=== PATIENT | female | born 1945 | race Caucasian/White ===

== ENCOUNTER 2018-02-02 11:15 | Outpatient (CLI) | payer MEDICARE | END 2018-02-02 11:16 | disposition home or self-care (01) | LOC: BICMAMMO 11:15 | PROVIDERS: ATTEND Family Medicine | DX: Z12.31 Encounter for screening mammogram for malignant neoplasm of breast (principal); R92.1 Mammographic calcification found on diagnostic imaging of breast | CPT/HCPCS: 77063; 77067 ==

== ENCOUNTER 2018-03-14 09:54 | Outpatient (CLI) | payer MEDICARE | END 2018-03-14 09:55 | disposition home or self-care (01) | LOC: BICMAMMO 09:54 | PROVIDERS: ATTEND Family Medicine | DX: R92.1 Mammographic calcification found on diagnostic imaging of breast (principal) | CPT/HCPCS: 77066; G0279 ==

== ENCOUNTER 2019-08-02 09:21 | Outpatient (CLI) | payer MEDICARE ==
--- NOTE | 2019-08-02 10:19 | RAD ---
Exam: 2 views thoracic spine HISTORY: Osteoporosis. History of T12 compression fracture. COMPARISON: 12/28/2013 FINDINGS: 12 thoracic type vertebra. Indeterminate compression fractures in the distal thoracic spine at approx imately T11 and T12 levels. There are also compression fractures in the midthoracic spine at approximately the T4 and T5 levels. If there is pain or point tenderness, consider MRI. IMPRESSION: Indeterminate compression fractures involving the mid and distal thoracic spine. If there is pain or point tenderness, consider MRI. CODE T
--- NOTE | 2019-08-02 10:45 | BD ---
DEXA SCAN BONE MINERAL DENSITY: HISTORY: Osteoporosis screening. COMPARISON: Bone mineral density study from 08/20/2014. FINDINGS: LUMBAR SPINE BMD (g/cm2) T-SCORE Z-SCORE L1 0.707 -2.6 -0.5 L2 0.678 -3.2 -0.9 L3 0.740 -3.1 -0.7 L4 0.680 -3.5 -1.0 TOTAL 0.701 -3.1 -0.8 LEFT FEMORAL NECK 0.346 -4.5 -2.5 TOTAL LEFT HIP 0.346 -4.9 -3.9 WHO CLASSIFICATION: Osteoporosis. TEN YEAR FRACTURE RISK: Major osteoporosis fracture 46% and hip fracture 29%. IMPRESSION: Osteoporosis with statistically significant decreased bone mineral density from the comparison 2013 e xamination. POS: OFF
== END 2019-08-02 09:22 | disposition home or self-care (01) ==
LOC: BICMAMMO 09:21
PROVIDERS: ATTEND Internal Medicine Rheumatology
DX: M81.0 Age-related osteoporosis without current pathological fracture (principal); S22.001A Stable burst fracture of unspecified thoracic vertebra, initial encounter for closed fracture
CPT/HCPCS: 72070; 77080

== ENCOUNTER 2019-09-04 22:04 | Inpatient (IN) | payer MEDICARE ==
[2019-09-04 22:51] LABS: #Eosinphils 0.1 thou/uL (0.0-0.7); #Lymphocytes 1.1 thou/uL (1.20-3.40); #Monocytes 1.4 thou/uL (0.11-0.59); #Neutrophils 10.4 thou/uL (1.40-6.50); %Basophils 0.1 % (0.0-1.0); %Eosinophils 0.6 % (0.0-10.0); %Lymphocytes 8.3 % (21.0-51.0); %Monocytes 10.9 % (0.0-10.0); %Neutrophils 80.2 % (42.0-75.0); Hemoglobin 11.1 g/dL (12.0-16.0); Mean Corpuscular HGB CONC 33.1 g/dL (32.0-36.0); Mean Corpuscular Volume 93.7 fL (78.0-98.0); Mean Platelet Volume 8.5 fL (7.4-10.4); Platelet Count 249 thou/uL (130-400); RBC Distribution Width 12.3 % (11.5-14.5); Red Blood Cell (RBC) Count 3.58 mill/uL (4.20-5.40); White Blood Cell (WBC) Count 12.9 thou/uL (4.8-10.8)
[2019-09-04 22:58] LABS: INR-International Normal Ratio 1.1; Prothrombin Time 13.9 SEC (12.0-14.7)
--- NOTE | 2019-09-04 23:07 | RAD ---
Portable frontal chest radiograph: 09/04/2019 COMPARISON: 05/21/2017 HISTORY: Difficulty swallowing, dyspnea, upset stomach FINDINGS: There is increased linear interstitial density with pulmonary hyperinflation. There is athe rosclerotic calcification of the aortic arch. No pneumothorax, lobar consolidation, or alveolar edema. IMPRESSION: No focal consolidation or alveolar edema.
[2019-09-04 23:13] LABS: ALT (SGPT) Less than 7 U/L (8-55); AST (SGOT) 10 U/L (5-34); Alkaline Phosphatase 282 U/L (40-110); Anion Gap 15 mmol/L (10-20); BUN (Urea Nitrogen) 24 mg/dL (9.8-20.1); Bilirubin, Total 0.5 mg/dL (0.2-1.2); Calc. Creatinine Clearance 0 mL/min (70-130); Calcium 9.2 mg/dL (7.8-10.44); Carbon Dioxide 14 mmol/L (23-31); Chloride 107 mmol/L (98-107); Estimated GFR-MDRD 20; Globulin 3.1 g/dL (2.4-3.5); Glucose 112 mg/dL (83-110); Lipase 6 U/L (8-78); Magnesium 1.9 mg/dL (1.6-2.6); Protein, Total 7.1 g/dL (6.0-8.3); Sodium 134 mmol/L (136-145)
[2019-09-04 23:19] LABS: Potassium 2.4 mmol/L (3.5-5.1)
--- NOTE | 2019-09-04 23:19 | CT ---
CT abdomen and pelvis: 09/04/2019 COMPARISON: None HISTORY: Generalized abdominal pain TECHNIQUE: Axial CT imaging at 5 mm intervals from lung bases through pubic symphysis without contras t. Coronal and sagittal reformatted imaging obtained. FINDINGS: The lack of contrast media limits assessment of the viscera, bowel, vascular structures, an d for lymphadenopathy. The visualized lung bases are unremarkable. No free intraperitoneal air. Limited assessment of the hepatic parenchyma appears grossly unremarkable. There are numerous postope rative clips along the posterior margin of the liver. The spleen is normal in size. The pancreas, adrenal glands, and kidneys demonstrate a normal noncontrast enhanced appearance. The sigmoid colon contains numerous diverticula and there is a suggestion of wall thickening and mild pericolonic fat stranding in the region of the sigmoid colon suspicious for diverticulitis in the proper clinical setting. Prominent stool is noted within the colon. There is a colonic suture line in the right lower quadrant. No evidence for small bowel obstruction is seen. Assessment of the bowel is limited without contrast media. There is scattered atherosclerotic calcification of the abdominal aorta and its branches. Mild anterior wedge compression fractures noted at the T12 and L1 levels, as seen on thoracic spine r adiographs dated 07/02/2019. IMPRESSION: Findings suspicious for sigmoid diverticulitis. Significant stool seen within the colon. No free intraperitoneal air or evidence of small bowel obstruction. No abdominal/pelvic ascites.
[2019-09-04 23:29] LABS: Phosphorus 1.9 mg/dL (2.3-4.7)
[2019-09-04] MEDS ORDERED: Promethazine HCl 25 MG/ML VIAL ONE (23:57)
[2019-09-04] MEDS ORDERED: Potassium Chloride 20 MEQ TAB ONE (23:57)
[2019-09-05] MEDS ORDERED: metroNIDAZOLE 500 MG/100 ML BAG ONE (00:49)
[2019-09-05 02:52] LABS: Bilirubin Negative (Negative); Blood, Urine 1+ (Negative); Clarity Clear (Clear); Glucose, Urine (Dipstick) Greater than 1000 mg/dL (Negative); Leukocyte Negative Leu/uL (Negative); Mucous/LPF Rare LPF (<2+); Nitrite Negative (Negative); Protein, Urine (Dipstick) 300 mg/dL (Neg-Trace); Squamous Epithelial 0-3 HPF (0-3); Urobilinogen Normal mg/dL (Less than 2); WBC/HPF 0-3 HPF (0-3)
[2019-09-05 02:56] LABS: Bacteria/HPF 1+ HPF (None Seen)
[2019-09-05] MEDS ORDERED: Promethazine HCl 25 MG in Sodium Chloride 0.9% 50 ML IVPB PRN (07:32)
[2019-09-05] MEDS ORDERED: Promethazine 25 MG TAB PO PRN (07:32)
--- NOTE | 2019-09-05 07:50 | HP ---
PRIMARY CARE PHYSICIAN: Shai Odonnell MD CHIEF COMPLAINT: "I am having trouble getting the potassium pills down. They get stuck in my throat and make me nauseated." HISTORY OF PRESENT ILLNESS: Ms. Diamond is a very pleasant 74-year-old female, who has a history of liver transplantation. She had a transplant about 2 years ago. She has a history of cirrhosis. She apparently was in her usual state of health according to the patient and her who was at bedside until she had some lab work done, which demonstrated that her potassium was low as well as her phosphorus. Her light truck driver prescribed some potassium pills and according to her , she has been going down ever sense. She says that the pills seem to get stuck in her throat and she can't get them down and when she does, she feels nauseated and has been vomiting off and on. She also noticed that she has lost about 6-8 pounds over the last month or so. She also notes some abdominal pain in the lower part of her abdomen, which she says is cramping like sensation like having a menstrual period. She says that certain pain medications will relieve it, but she cannot remember the names of the pain medicine. She has had the nausea as well and the pain is nonradiating. She cannot really relate it to oral intake and she denies having any diarrhea, but says in fact, she has been constipated, but she says she has not really put anything in her stomach to have anything "come out." Otherwise, she has been having some aches in her joints off and on. She denies any fevers, no chills. Other than the an occasional headache off and on, the review of systems is essentially negative. REVIEW OF SYSTEMS: All systems were reviewed and are negative except for that mentioned in the history of present illness. PAST MEDICAL HISTORY: Significant for hypertension, hepatitis C, history of coagulopathy, cirrhosis of the liver, colon cancer, unknown type. She had also a colon polyp, gastroesophageal reflux disease, and history of a previous stroke. PAST SURGICAL HISTORY: She has had a colectomy and colonoscopy with polypectomy. ALLERGIES: NO KNOWN DRUG ALLERGIES. SOCIAL HISTORY: She is . She is a former smoker. She quit in 2003. Denies any drug use. FAMILY HISTORY: Significant for father who had diabetes mellitus. MEDICATIONS: Include: 1. Cyclosporine 50 mg twice daily. 2. Aspirin 81 mg daily. 3. Biotin 5 mg daily. 4. Vitamin D plus calcium . 5. She is also on magnesium 400 mg daily. 6. Multivitamin with folic acid daily. 7. Mycophenolate twice daily. 8. ProAir inhaler. 9. Potassium chloride. 10. daily. PHYSICAL EXAMINATION: GENERAL: She is actually chronically ill in appearance and she is very frail and thin. VITAL SIGNS: Her blood pressure was 145/61, heart rate 90, respiratory rate of 20, temperature is 98 and O2 saturation is 96% on room air. HEENT: Pupils are equal, round, and reactive to light. Extraocular muscles are intact. Her sclerae are anicteric. Throat, no erythema, no exudates. Uvula was slightly deviated to the right. NECK: There is no adenopathy. No bruits. LUNGS: Clear to auscultation. There is no wheezing, no rales, no rhonchi. CARDIOVASCULAR: She had a normal S1, S2. I did not appreciate an S3 or S4. No murmurs, clicks or rubs. ABDOMEN: Soft. She did have a midline abdominal scar. There is no rebound, no guarding, no organomegaly. She did have some tenderness in the left lower quadrant. EXTREMITIES: She has some evidence of muscle wasting. There is no joint effusion. No edema. She has good dorsalis pedis pulses bilaterally. NEUROLOGIC: Grossly intact. She is able to move all of her extremities. The muscle strength appears to be intact and there is no evidence of any asterixis. SKIN AND INTEGUMENT: There are no significant skin changes. No rash. LABORATORY DATA: Her sodium is 134, potassium 2.4, chloride is 107, CO2 is 14, BUN of 24, creatinine 2.34, glucose is 112. Phosphorus was 1.9. Her white blood cell count was 12.9, hemoglobin 11.1, hematocrit is 33.5, and platelet count is 249. INR is 1.1. IMAGING: She had a chest x-ray in which there was no evidence of consolidation or alveolar edema. Heart size was normal, this is by my reading. She also had a CT scan of the abdomen and pelvis in which there were findings which were suspicious for sigmoid diverticulitis. There was significant stool seen within the colon and no free air or obstruction. ASSESSMENT: This is a pleasant 74-year-old female, who presented to the emergency room with complaints of difficulty swallowing her potassium pills as well as fairly chronic nausea as well as intermittent vomiting. She was found to be hypokalemic, likely due to poor oral intake and inability to adequately supplement her potassium. She also has a mild hypophosphatemia and evidence of diverticulitis. 1. With regard to the hypokalemia, this will need to be replaced. We will place both with IV potassium chloride and we will also place her on Neutra-Phos as well. 2. Hypophosphatemia, again likely due to poor oral intake and this will also be replaced. 3. Possible diverticulitis. She has already been started on Levaquin and Flagyl in the ER. Blood cultures have been obtained and we will continue the antibiotics and follow with serial abdominal exams. 4. History of liver transplant. As far as her hepatic function, this appears to be stable. Her INR was 1.1 and there is no evidence of coagulopathy or significantly elevated liver function tests. She has chronic kidney disease, which is a stage IV, which is clinically stable. No evidence of any asterixis or stigmata of liver disease on her exam. We will go ahead and continue her medications to prevent anti-rejection medications and hopefully the patient will be clinically improved within the next 24-48 hours and hopefully can be discharged. Job ID: [id number]
[2019-09-05] MEDS: Heparin 5,000 UNITS/ML VIAL SC SCH ×3 (09:22→20:59)
[2019-09-05] MEDS: NS 0.9% w/ 20 MEQ KCL 1,000 ML/1,000 ML BAG IV SCH ×2 (09:26→21:02)
[2019-09-05] MEDS: metroNIDAZOLE 500 MG in Premix Bag 1 BAG IVPB SCH ×2 (11:39→17:58)
[2019-09-05] MEDS: cycloSPORINE, Modified 25 MG CAP PO SCH ×2 (11:39→22:50)
[2019-09-05] MEDS ORDERED: Magnesium Citrate 300 ML BOT PO SCH (15:00)
--- NOTE | 2019-09-05 15:24 | PDOC.HOSPP ---
- Subjective Subjective: Doing a little better. Still not confident in trying to take po's. Abdominal pain is intermittent. Lower abdomen. She does report that she has been having some constipation. That is not normal for her. She was under the impression that her anti-rejection meds were providing some antimicrobial effect as well. - Objective Result Diagrams: 09/04/19 22:43 09/04/19 22:43 Hospitalist ROS - Medication Medications: Active Medications Generic Name Dose Route Start Last Admin Trade Name Alyse PRN Reason Stop Dose Admin Cyclosporine 50 mg 09/05/19 09:00 09/05/19 11:39 Neoral PO 50 mg BID HENRY Administration Heparin Sodium (Porcine) 5,000 units 09/05/19 09:00 09/05/19 09:22 Heparin SC 5,000 units TID HENRY Administration Metronidazole 500 mg/ Device 100 mls @ 100 mls/hr 09/05/19 08:00 09/05/19 11: 39 IVPB 100 mls 0800,1600,2359 HENRY Administration Potassium Chloride/Sodium Chloride 1,000 ml in 1,000 mls @ 75 mls/hr 09/05/19 07:32 09/05/19 09:26 Ns 0.9% W/ 20 Meq Kcl IV 1,000 mls .[id number] HENRY Administration - Exam General Appearance: NAD, awake alert Heart: RRR, no murmur, no gallops, no rubs, normal peripheral pulses Respiratory: CTAB, no wheezes, no rales, no ronchi, normal chest expansion, no tachypnea, normal percussion Gastrointestinal: soft, non-distended, normal bowel sounds, no palpable masses, no hepatomegaly, no splenomegaly, no bruit, tender to palpation (mildly over lower abdomen.) Musculoskeletal: normal tone Psychiatric: normal affect, normal behavior, A&O x 3 Hosp A/P (1) Diverticulitis Code(s): K57.92 - DVTRCLI OF INTEST, PART UNSP, W/O PERF OR ABSCESS W/O BLEED Status: Acute (2) Hypokalemia Code(s): E87.6 - HYPOKALEMIA Status: Resolved (3) Constipation Code(s): K59.00 - CONSTIPATION, UNSPECIFIED Status: Acute (4) History of liver transplant Code(s): Z94.4 - LIVER TRANSPLANT STATUS Status: Acute (5) Hypophosphatemia Code(s): E83.39 - OTHER DISORDERS OF PHOSPHORUS METABOLISM Status: Acute (6) Cirrhosis of liver with ascites Code(s): K74.60 - UNSPECIFIED CIRRHOSIS OF LIVER Status: Chronic (7) Coagulopathy Status: Chronic (8) Hepatitis C Code(s): B19.20 - UNSPECIFIED VIRAL HEPATITIS C WITHOUT HEPATIC COMA Status: Chronic Qualifiers: Viral hepatitis chronicity: chronic (9) Thrombocytopenia Code(s): D69.6 - THROMBOCYTOPENIA, UNSPECIFIED Status: Chronic (10) Dysphagia Code(s): R13.10 - DYSPHAGIA, UNSPECIFIED Status: Acute (11) Hx of malignant neoplasm of colon Code(s): Z85.038 - PERSONAL HISTORY OF MALIGNANT NEOPLASM OF LARGE INTESTINE Status: Acute (12) History of CVA (cerebrovascular accident) Code(s): Z86.73 - PRSNL HX OF TIA (TIA), AND CEREB INFRC W/O RESID DEFICITS Status: Acute (13) HTN (hypertension) Code(s): I10 - ESSENTIAL (PRIMARY) HYPERTENSION Status: Acute - Plan Continue IV cipro and flagyl for the diverticulitis. Appears mild, but she is immunocompromised and she is not reliably able to take pills. CARE TRANSPORT NURSE eval pending. IV meds as possible. Repeat labs to check potassium. Receiving low level IVF with potassium. Will give some mag citrate for constipation. Suspect that is contributing to the abdominal pain and possibly the nausea. Symptomatic tx for nausea. Continue home meds otherwise. Phos appears to be back to normal.
[2019-09-05] MEDS: Ciprofloxacin Lactate/D5W 200 MG in Premix Bag 1 BAG IVPB SCH (16:20)
[2019-09-05 16:22] LABS: #Eosinphils 0.1 thou/uL (0.0-0.7); #Lymphocytes 1.2 thou/uL (1.20-3.40); #Monocytes 1.3 thou/uL (0.11-0.59); #Neutrophils 10.2 thou/uL (1.40-6.50); %Basophils 0.1 % (0.0-1.0); %Eosinophils 0.6 % (0.0-10.0); %Neutrophils 80.4 % (42.0-75.0); Hemoglobin 10.4 g/dL (12.0-16.0); Mean Corpuscular HGB CONC 33.4 g/dL (32.0-36.0); Mean Corpuscular Hemoglobin 31.7 pg (27.0-31.0); Mean Corpuscular Volume 94.9 fL (78.0-98.0); Mean Platelet Volume 8.5 fL (7.4-10.4); Platelet Count 253 thou/uL (130-400); RBC Distribution Width 12.3 % (11.5-14.5); Red Blood Cell (RBC) Count 3.28 mill/uL (4.20-5.40); White Blood Cell (WBC) Count 12.7 thou/uL (4.8-10.8)
[2019-09-05 16:40] LABS: ALT (SGPT) Less than 7 U/L (8-55); AST (SGOT) 9 U/L (5-34); Albumin 3.7 g/dL (3.4-4.8); Alkaline Phosphatase 258 U/L (40-110); Anion Gap 10 mmol/L (10-20); BUN (Urea Nitrogen) 22 mg/dL (9.8-20.1); Bilirubin, Total 0.4 mg/dL (0.2-1.2); Calc. Creatinine Clearance 15 mL/min (70-130); Calcium 8.9 mg/dL (7.8-10.44); Carbon Dioxide 15 mmol/L (23-31); Chloride 115 mmol/L (98-107); Estimated GFR-MDRD 23; Globulin 2.9 g/dL (2.4-3.5); Glucose 127 mg/dL (83-110); Protein, Total 6.6 g/dL (6.0-8.3); Sodium 137 mmol/L (136-145)
[2019-09-05] MEDS: Ondansetron ODT 4 MG TAB PO PRN (18:35)
[2019-09-05] MEDS: Acetaminophen 325 MG TAB PO PRN (18:39)
[2019-09-06] MEDS: metroNIDAZOLE 500 MG in Premix Bag 1 BAG IVPB SCH ×3 (01:26→16:47)
[2019-09-06] MEDS: Ciprofloxacin Lactate/D5W 200 MG in Premix Bag 1 BAG IVPB SCH ×2 (03:20→13:33)
[2019-09-06 05:02] LABS: #Eosinphils 0.1 thou/uL (0.0-0.7); #Lymphocytes 0.8 thou/uL (1.20-3.40); #Monocytes 1.2 thou/uL (0.11-0.59); %Basophils 0.3 % (0.0-1.0); %Eosinophils 1.4 % (0.0-10.0); %Lymphocytes 8.2 % (21.0-51.0); %Monocytes 11.4 % (0.0-10.0); %Neutrophils 78.7 % (42.0-75.0); Hemoglobin 9.2 g/dL (12.0-16.0); Mean Corpuscular HGB CONC 32.1 g/dL (32.0-36.0); Mean Corpuscular Hemoglobin 30.6 pg (27.0-31.0); Mean Corpuscular Volume 95.5 fL (78.0-98.0); Platelet Count 245 thou/uL (130-400); RBC Distribution Width 12.3 % (11.5-14.5); Red Blood Cell (RBC) Count 2.99 mill/uL (4.20-5.40); White Blood Cell (WBC) Count 10.2 thou/uL (4.8-10.8)
[2019-09-06 05:11] LABS: Anion Gap 9 mmol/L (10-20); BUN (Urea Nitrogen) 20 mg/dL (9.8-20.1); Calc. Creatinine Clearance 18 mL/min (70-130); Calcium 8.4 mg/dL (7.8-10.44); Carbon Dioxide 14 mmol/L (23-31); Chloride 117 mmol/L (98-107); Estimated GFR-MDRD 27; Glucose 114 mg/dL (83-110); Sodium 138 mmol/L (136-145)
[2019-09-06 05:16] LABS: Potassium 2.4 mmol/L (3.5-5.1)
[2019-09-06] MEDS ORDERED: Potassium Chloride 40 MEQ in Sodium Chloride 0.9% 250 ML 250 ML IVPB SCH (05:45)
[2019-09-06] MEDS ORDERED: Sodium Chloride 0.9% 10 ML ONE (07:52)
[2019-09-06] MEDS: Heparin 5,000 UNITS/ML VIAL SC SCH ×3 (08:44→20:57)
[2019-09-06] MEDS: cycloSPORINE, Modified 25 MG CAP PO SCH ×2 (08:45→22:13)
[2019-09-06] MEDS: Acetaminophen 325 MG TAB PO PRN (09:00)
--- NOTE | 2019-09-06 11:25 | PDOC.HOSPP ---
- Subjective Encounter Date: 09/06/19 Encounter Time: 11:10 Subjective: f/u for acute diverticulitis on Cipro/Flagyl and hypokalemia on K+ supplementation. Feels ok overall but still abd cramping. Small BM last pm. Tolerating po intake. - Objective Vital Signs & Weight: Vital Signs (12 hours) Temp Pulse Pulse Pulse Resp BP BP 09/06/19 09:20 76 82 110/51 L 126/58 L 09/06/19 08:00 97.4 F L 76 18 09/06/19 03:18 98.8 F 77 22 H BP Pulse Ox Pulse Ox Pulse Ox 09/06/19 09:20 98 98 09/06/19 08:00 102/53 L 98 09/06/19 03:18 115/58 L 96 Weight Weight 90 lb 14.4 oz I&O: 09/05/19 09/06/19 09/07/19 06:59 06:59 06:59 Intake Total 980 Output Total 1250 Balance -270 Result Diagrams: 09/06/19 04:24 09/06/19 04:24 Additional Labs: Microbiology 09/05/19 00:45 Venous blood - Left Hand Blood Culture - Preliminary Specimen has been received and culture in progress. No Growth to date. 09/05/19 00:40 Venous blood - Right Hand Blood Culture - Preliminary Specimen has been received and culture in progress. No Growth to date. Laboratory Tests 09/04/19 09/04/19 09/04/19 22:43 22:43 22:43 WBC 12.9 H Hgb 11.1 L Potassium 2.4 L* Creatinine 2.34 H Phosphorus 1.9 L 09/05/19 09/05/19 16:08 16:08 WBC 12.7 H Hgb 10.4 L Potassium 3.0 L Creatinine 2.09 H Phosphorus EKG Reviewed by me: Yes (Tele - SR) Hospitalist ROS - Medication Medications: Active Medications Generic Name Dose Route Start Last Admin Trade Name Freq PRN Reason Stop Dose Admin Acetaminophen 325 mg 09/05/19 07:32 09/06/19 09:00 Tylenol PO 325 mg Q4H PRN Administration Headache/Fever/Mild Pain (1-3) Cyclosporine 50 mg 09/05/19 09:00 09/06/19 08:45 Neoral PO 50 mg BID HENRY Administration Heparin Sodium (Porcine) 5,000 units 09/05/19 09:00 09/06/19 08:44 Heparin SC 5,000 units TID HENRY Administration Ciprofloxacin/Dextrose 200 mg/ 100 mls @ 100 mls/hr 09/05/19 14:00 09/06/19 03:20 Device IVPB 100 mls 0200,1400 HENRY Administration Metronidazole 500 mg/ Device 100 mls @ 100 mls/hr 09/05/19 08:00 09/06/19 08: 48 IVPB 100 mls 0800,1600,2359 HENRY Administration Potassium Chloride/Sodium Chloride 1,000 ml in 1,000 mls @ 75 mls/hr 09/05/19 07:32 09/05/19 21:02 Ns 0.9% W/ 20 Meq Kcl IV 1,000 mls .[id number] HENRY Administration Ondansetron HCl 4 mg 09/05/19 07:32 09/05/19 18:35 Zofran Odt PO 4 mg Q6H PRN Administration Nausea/Vomiting - Exam General Appearance: NAD, awake alert Eye: PERRL, anicteric sclera ENT: normocephalic atraumatic, no oropharyngeal lesions Neck: supple, symmetric, no JVD, no thyromegaly, no lymphadenopathy Heart: RRR, no gallops, no rubs, normal peripheral pulses Respiratory: CTAB, no wheezes, no rales, no ronchi, normal chest expansion Gastrointestinal: soft, non-distended, normal bowel sounds, no palpable masses Gastrointestinal - other findings: minimal TTP Extremities: no cyanosis, no clubbing, no edema Skin: normal turgor, no lesions Neurological: cranial nerve grossly intact, no new deficit Musculoskeletal: normal tone, generalized weakness Psychiatric: normal affect, A&O x 3 Hosp A/P (1) Acute diverticulitis Code(s): K57.92 - DVTRCLI OF INTEST, PART UNSP, W/O PERF OR ABSCESS W/O BLEED Status: Acute Plan: Continue Cipro/Flagyl IV another 24h then convert to po (2) Hypokalemia Code(s): E87.6 - HYPOKALEMIA Status: Acute Plan: Persistent, KCL supplementation, serial K+ monitoring, no ectopy noted on tele (3) EDGAR (acute kidney injury) Code(s): N17.9 - ACUTE KIDNEY FAILURE, UNSPECIFIED Status: Acute Plan: Improved, likey multifactorial, avoid nephrotoxic meds and limit contrast exposure (4) Constipation Code(s): K59.00 - CONSTIPATION, UNSPECIFIED Status: Acute Plan: Improved, encourage OOB/ambulation, PRN laxatives (5) Protein-calorie malnutrition, moderate Code(s): E44.0 - MODERATE PROTEIN-CALORIE MALNUTRITION Status: Chronic Plan: Add Ensure Enlive BID (6) History of liver transplant Code(s): Z94.4 - LIVER TRANSPLANT STATUS Status: Chronic Plan: s/p transplant x 2 years, continue immunosuppressant therapy - Plan continue antibiotics, PT/OT, oncology social worker, out of bed/ambulate, DVT proph w/ SCDs Stable currently Continue KCL supplementation Add Ensure Enlive BID Continue Cipro/Flagyl IV another 24h then convert to po OOB with PT AM lab: BMP
[2019-09-06] MEDS ORDERED: PROVENTIL INHALER 6.7 G (200 INHALATIONS) INH PRN (11:27)
[2019-09-06] MEDS: NS 0.9% w/ 20 MEQ KCL 1,000 ML/1,000 ML BAG IV SCH (13:34)
[2019-09-06 16:44] LABS: Anion Gap 8 mmol/L (10-20); BUN (Urea Nitrogen) 19 mg/dL (9.8-20.1); Calc. Creatinine Clearance 18 mL/min (70-130); Calcium 8.5 mg/dL (7.8-10.44); Carbon Dioxide 14 mmol/L (23-31); Chloride 118 mmol/L (98-107); Estimated GFR-MDRD 27; Glucose 107 mg/dL (83-110); Potassium 3.4 mmol/L (3.5-5.1); Sodium 137 mmol/L (136-145)
[2019-09-06] MEDS: Mycophenolate 250 MG CAP PO SCH (20:57)
[2019-09-07] MEDS: metroNIDAZOLE 500 MG in Premix Bag 1 BAG IVPB SCH ×2 (00:24→08:46)
[2019-09-07] MEDS: Ondansetron ODT 4 MG TAB PO PRN (02:04)
[2019-09-07] MEDS: NS 0.9% w/ 20 MEQ KCL 1,000 ML/1,000 ML BAG IV SCH (02:09)
[2019-09-07] MEDS: Ciprofloxacin Lactate/D5W 200 MG in Premix Bag 1 BAG IVPB SCH (02:50)
[2019-09-07 04:33] LABS: Anion Gap 9 mmol/L (10-20); BUN (Urea Nitrogen) 15 mg/dL (9.8-20.1); Calc. Creatinine Clearance 20 mL/min (70-130); Calcium 8.3 mg/dL (7.8-10.44); Carbon Dioxide 14 mmol/L (23-31); Chloride 119 mmol/L (98-107); Estimated GFR-MDRD 30; Glucose 110 mg/dL (83-110); Sodium 139 mmol/L (136-145)
[2019-09-07 04:41] LABS: Potassium 2.9 mmol/L (3.5-5.1)
[2019-09-07] MEDS: Aspirin 81 mg Enteric Coated Tablet PO SCH (08:47)
[2019-09-07] MEDS: Mycophenolate 250 MG CAP PO SCH ×2 (08:47→18:37)
[2019-09-07] MEDS: cycloSPORINE, Modified 25 MG CAP PO SCH ×2 (08:50→21:37)
[2019-09-07] MEDS: Heparin 5,000 UNITS/ML VIAL SC SCH ×3 (08:52→21:37)
[2019-09-07] MEDS ORDERED: Non-Formulary Item 1 EACH (Biotin [Biotin] 5 MG) PO SCH (09:00)
--- NOTE | 2019-09-07 13:16 | PDOC.HOSPP ---
- Subjective Encounter Date: 09/07/19 Encounter Time: 13:00 Subjective: f/u for acute diverticulitis on Cipro/Flagyl. Feels better overall and less abd pain. Appetite slowly improving. - Objective Vital Signs & Weight: Vital Signs (12 hours) Temp Pulse Pulse Pulse Resp BP BP 09/07/19 11:09 97.6 F 74 18 09/07/19 10:15 79 79 117/60 121/61 09/07/19 08:00 98.3 F 79 20 09/07/19 03:21 98.4 F 81 19 BP Pulse Ox Pulse Ox Pulse Ox 09/07/19 11:09 121/58 L 99 09/07/19 10:15 98 98 09/07/19 08:00 136/64 100 09/07/19 03:21 116/56 L 97 Weight Admit Weight 88 lb 14.4 oz Weight 93 lb 1.6 oz I&O: 09/06/19 09/07/19 09/08/19 06:59 06:59 06:59 Intake Total 980 3680 Output Total 1250 975 Balance -270 2705 Result Diagrams: 09/06/19 04:24 09/07/19 03:58 Additional Labs: Microbiology 09/05/19 00:45 Venous blood - Left Hand Blood Culture - Preliminary Specimen has been received and culture in progress. No Growth to date. 09/05/19 00:40 Venous blood - Right Hand Blood Culture - Preliminary Specimen has been received and culture in progress. No Growth to date. Laboratory Tests 09/04/19 09/04/19 09/04/19 22:43 22:43 22:43 WBC 12.9 H Hgb 11.1 L Potassium 2.4 L* Creatinine 2.34 H Phosphorus 1.9 L 09/05/19 09/05/19 09/06/19 16:08 16:08 04:24 WBC 12.7 H Hgb 10.4 L Potassium 3.0 L 2.4 L* Creatinine 2.09 H 1.84 H Phosphorus 09/06/19 16:06 WBC Hgb Potassium 3.4 L Creatinine 1.86 H Phosphorus EKG Reviewed by me: Yes (Tele - SR) Hospitalist ROS - Medication Medications: Active Medications Generic Name Dose Route Start Last Admin Trade Name Freq PRN Reason Stop Dose Admin Acetaminophen 325 mg 09/05/19 07:32 09/06/19 09:00 Tylenol PO 325 mg Q4H PRN Administration Headache/Fever/Mild Pain (1-3) Aspirin 81 mg 09/07/19 09:00 09/07/19 08:47 Ecotrin PO 81 mg DAILY HENRY Administration Cyclosporine 50 mg 09/05/19 09:00 09/07/19 08:50 Neoral PO 50 mg BID HENRY Administration Heparin Sodium (Porcine) 5,000 units 09/05/19 09:00 09/07/19 08:52 Heparin SC 5,000 units TID HENRY Administration Ciprofloxacin/Dextrose 200 mg/ 100 mls @ 100 mls/hr 09/05/19 14:00 09/07/19 02:50 Device IVPB 100 mls 0200,1400 HENRY Administration Metronidazole 500 mg/ Device 100 mls @ 100 mls/hr 09/05/19 08:00 09/07/19 08: 46 IVPB 100 mls 0800,1600,2359 HENRY Administration Potassium Chloride/Sodium Chloride 1,000 ml in 1,000 mls @ 75 mls/hr 09/05/19 07:32 09/07/19 02:09 Ns 0.9% W/ 20 Meq Kcl IV 1,000 mls .[id number] HENRY Administration Mycophenolate Mofetil 500 mg 09/06/19 21:00 09/07/19 08:47 Cellcept PO 500 mg BID HENRY Administration Ondansetron HCl 4 mg 09/05/19 07:32 09/07/19 02:04 Zofran Odt PO 4 mg Q6H PRN Administration Nausea/Vomiting Tenofovir Disoproxil Fumarate 300 mg 09/06/19 21:00 09/07/19 08:51 Viread PO 300 mg BID HENRY Administration - Exam General Appearance: NAD, awake alert Eye: PERRL, anicteric sclera ENT: normocephalic atraumatic, no oropharyngeal lesions Neck: supple, symmetric, no JVD, no thyromegaly Heart: RRR, no murmur, no gallops, no rubs Respiratory: CTAB, no wheezes, no rales, no ronchi Gastrointestinal: soft, non-tender, non-distended, normal bowel sounds, no palpable masses Extremities: no cyanosis, no clubbing, no edema Skin: normal turgor, no lesions Neurological: cranial nerve grossly intact, no new deficit Hosp A/P (1) Acute diverticulitis Code(s): K57.92 - DVTRCLI OF INTEST, PART UNSP, W/O PERF OR ABSCESS W/O BLEED Status: Acute Plan: Improved, convert Cipro/Flagyl to po today, pain control as clinically indicated (2) Hypokalemia Code(s): E87.6 - HYPOKALEMIA Status: Acute Plan: Klor-con 40meq TID, serial K+ monitoring (3) EDGAR (acute kidney injury) Code(s): N17.9 - ACUTE KIDNEY FAILURE, UNSPECIFIED Status: Acute Plan: Improved, continue low-volume IVF's, avoid nephrotoxic agents (4) Constipation Code(s): K59.00 - CONSTIPATION, UNSPECIFIED Status: Acute Plan: Resolving (5) Protein-calorie malnutrition, moderate Code(s): E44.0 - MODERATE PROTEIN-CALORIE MALNUTRITION Status: Chronic Plan: Ensure BID (6) History of liver transplant Code(s): Z94.4 - LIVER TRANSPLANT STATUS Status: Chronic - Plan plan discussed w/ family, continue antibiotics, PT/OT, social work administrator, out of bed/ambulate, DVT proph w/SCDs Stable currently Continue KCL supplementation Add Ensure Enlive BID Continue Cipro/Flagyl po for outpt mgmt OOB with PT AM lab: BMP Home in 24h
[2019-09-07] MEDS ORDERED: NS 0.9% w/ 20 MEQ KCL 1,000 ML/1,000 ML BAG IV SCH (13:21)
[2019-09-07] MEDS: metroNIDAZOLE 500 MG TAB PO SCH ×2 (14:21→21:37)
[2019-09-07] MEDS: Cipro 250 MG TAB PO SCH (19:35)
[2019-09-07] MEDS ORDERED: traMADol HCl 50 MG TAB PO PRN (20:32)
[2019-09-07] MEDS ORDERED: Acetaminophen 325 MG TAB PO PRN (20:33)
[2019-09-07] MEDS: K-Phos Neutral 250 MG TAB PO SCH (20:38)
[2019-09-07] MEDS ORDERED: Mycophenolate 250 MG CAP PO SCH (21:00)
[2019-09-08] MEDS: Ondansetron ODT 4 MG TAB PO PRN (01:02)
[2019-09-08 05:17] LABS: Anion Gap 9 mmol/L (10-20); BUN (Urea Nitrogen) 12 mg/dL (9.8-20.1); Calc. Creatinine Clearance 24 mL/min (70-130); Calcium 8.2 mg/dL (7.8-10.44); Carbon Dioxide 11 mmol/L (23-31); Chloride 122 mmol/L (98-107); Estimated GFR-MDRD 37; Glucose 101 mg/dL (83-110); Potassium 3.5 mmol/L (3.5-5.1); Sodium 138 mmol/L (136-145)
[2019-09-08] MEDS ORDERED: Acetaminophen 325 MG TAB PO PRN (05:28)
[2019-09-08] MEDS ORDERED: traMADol HCl 50 MG TAB PO PRN (05:28)
[2019-09-08] MEDS: Cipro 250 MG TAB PO SCH (05:31)
[2019-09-08] MEDS: cycloSPORINE, Modified 25 MG CAP PO SCH (09:54)
[2019-09-08] MEDS: K-Phos Neutral 250 MG TAB PO SCH (09:54)
[2019-09-08] MEDS: metroNIDAZOLE 500 MG TAB PO SCH (09:54)
[2019-09-08] MEDS: Aspirin 81 mg Enteric Coated Tablet PO SCH (09:54)
[2019-09-08] MEDS: Mycophenolate 250 MG CAP PO SCH (09:54)
[2019-09-08] MEDS: Heparin 5,000 UNITS/ML VIAL SC SCH (10:01)
[2019-09-08 10:05] VITALS: BMI 17.6
[2019-09-08 13:05] VITALS: BP 123/80; TEMP 98.3
== END 2019-09-08 15:00 | disposition home or self-care (01) | DRG 392 ==
LOC: ERS 22:04 → ERHOLD 09-05 01:23 → 2NO 09-05 15:54
PROVIDERS: ADMIT Internal Medicine; ATTEND Internal Medicine
DX: K57.32 Diverticulitis of large intestine without perforation or abscess without bleeding (principal); N17.9 Acute kidney failure, unspecified; E44.0 Moderate protein-calorie malnutrition; Z68.1 Body mass index [BMI] 19.9 or less, adult; Z94.4 Liver transplant status; D68.9 Coagulation defect, unspecified; E87.6 Hypokalemia; K59.00 Constipation, unspecified; K21.9 Gastro-esophageal reflux disease without esophagitis; E83.39 Other disorders of phosphorus metabolism; K74.60 Unspecified cirrhosis of liver; R13.10 Dysphagia, unspecified; I10 Essential (primary) hypertension; Z90.49 Acquired absence of other specified parts of digestive tract; Z87.891 Personal history of nicotine dependence; Z79.899 Other long term (current) drug therapy; Z85.038 Personal history of other malignant neoplasm of large intestine; Z86.73 Personal history of transient ischemic attack (TIA), and cerebral infarction without residual deficits
CPT/HCPCS: 36415; 71045; 74176; 80048; 80053; 81003; 81015; 83605; 83690; 83735; 84100; 84484; 85025; 85610; 87040; 93005; 96361; 96365; 96367; 96375; J0744; J1644; J2550; J3480; J7050; J7515; J7517; Q0162

== ENCOUNTER 2019-09-12 17:03 | Inpatient (IN) | payer MEDICARE ==
[~2019-09-12 17:03] MED LIST: Heparin 1,000 UNITS/ML VIAL ONE
[2019-09-12] MEDS ORDERED: Ondansetron PF 4 MG/2 ML Vial ONE ×2 (18:01→21:36)
[2019-09-12 18:38] LABS: Hemoglobin 13.5 g/dL (12.0-16.0); Mean Corpuscular HGB CONC 32.2 g/dL (32.0-36.0); Mean Corpuscular Hemoglobin 30.8 pg (27.0-31.0); Mean Corpuscular Volume 95.7 fL (78.0-98.0); Mean Platelet Volume 8.3 fL (7.4-10.4); Platelet Count 465 thou/uL (130-400); RBC Distribution Width 13.7 % (11.5-14.5); Red Blood Cell (RBC) Count 4.39 mill/uL (4.20-5.40)
[2019-09-12 18:51] LABS: ALT (SGPT) Less than 7 U/L (8-55); AST (SGOT) 11 U/L (5-34); Albumin 4.5 g/dL (3.4-4.8); Alkaline Phosphatase 303 U/L (40-110); BUN (Urea Nitrogen) 21 mg/dL (9.8-20.1); Bilirubin, Total 0.4 mg/dL (0.2-1.2); Calc. Creatinine Clearance 0 mL/min (70-130); Calcium 10.1 mg/dL (7.8-10.44); Chloride 114 mmol/L (98-107); Estimated GFR-MDRD 24; Glucose 90 mg/dL (83-110); Magnesium 2.1 mg/dL (1.6-2.6); Potassium 4.3 mmol/L (3.5-5.1); Protein, Total 7.5 g/dL (6.0-8.3); Sodium 135 mmol/L (136-145)
[2019-09-12 18:55] LABS: Band 10 % (5-11); Carbon Dioxide Less than 8 mmol/L (23-31); Lymphocytes 4 % (21-51); MDiff Complete? YES; Metamyelocyte 1 % (0-0); Neutrophil 85 % (42-75); Nucleated RBC 1 % (0); Platelet Morphology Comment Appears Increased; RBC Morphology Normal; Toxic Granulation SLIGHT
--- NOTE | 2019-09-12 19:24 | CT ---
CT ABDOMEN AND PELVIS WITHOUT IV CONTRAST: 09/12/19 INDICATIONS: Left abdominal pain. Comparison made to recent CT of 09/04/19. That exam described evidence of sigmoid diverticulitis. FINDINGS: Lung bases clear. Liver, spleen and pancreas unremarkable for unenhanced study. Kidneys unremarkable. No hydronephrosis . Aorta calcified but normal caliber. Small bowel loops normal caliber. There is dense stool throughout the colon. There is mural thickening in the left colon with inflammat ory change. There is a new area of very dense stool with mural thickening in the upper left colon at the splenic flexure. This is new since the prior study. There is surrounding inflammation at this loc ation. In addition, there continues to be mural thickening and inflammatory change involving the sigmoid col on with diffuse diverticulosis. Numerous areas of very dense stool seen. IMPRESSION: Evidence of colitis. A new area of mural thickening with dense stool in the upper left colon at splen ic flexure. There continue to be mural thickening and inflammatory change along the sigmoid colon wit h diffuse diverticulosis, suggesting diverticulitis. POS: OFF
[2019-09-12] MEDS ORDERED: cefTRIAXone\\ROCEPHIN 2 GM VIAL ONE (20:00)
[2019-09-12] MEDS ORDERED: Sodium Chloride 0.9% 100 ML ONE (20:00)
[2019-09-12] MEDS ORDERED: Sodium Chloride 0.9% 1,000 ML IV SCH (22:45)
[2019-09-12] MEDS ORDERED: PROVENTIL INHALER 6.7 G (200 INHALATIONS) INH PRN (23:26)
[2019-09-12] MEDS ORDERED: Calcium Carbonate 500 MG ChewTAB PO PRN (23:26)
[2019-09-12] MEDS ORDERED: hydrALAZINE 20 MG/ML VIAL SLOW IVP PRN (23:26)
[2019-09-12] MEDS ORDERED: Ondansetron ODT 4 MG TAB PO PRN (23:26)
[2019-09-12] MEDS ORDERED: Ondansetron PF 4 MG/2 ML Vial IVP PRN (23:26)
[2019-09-12] MEDS ORDERED: Acetaminophen 500 MG TAB PO PRN (23:26)
[2019-09-12] MEDS: Sodium Chloride 0.9% 1,000 ML IV SCH (23:46)
[2019-09-13 00:06] VITALS: BMI 15.6
[2019-09-13] MEDS: MEROPENEM 1 GM/50 ML 1 GM in Premix Bag 1 BAG IVPB SCH ×4 (00:14→23:29)
--- NOTE | 2019-09-13 03:22 | HP ---
PRIMARY CARE PROVIDER: Shai Odonnell MD CHIEF COMPLAINT: Abdominal pain, nausea, vomiting. HISTORY OF PRESENT ILLNESS: This is a 74-year-old female, who presents to [facility] Emergency Department complaining of persistent nausea, vomiting, and abdominal pain with poor oral intake over the last 72 hours. The patient was recently admitted to [facility] from 09/05/2019 through 09/08/2019, for acute diverticulitis and multiple metabolic derangements including hypokalemia and acute kidney injury. The patient's history is significant for chronic immunosuppression in the context of prior liver transplantation. The patient states she continues to take CellCept and cyclosporine on a daily basis. The patient states she has been unable to hold down any significant meals and minimal fluids. The patient attempted to take her home medication regimen, but was unable to due to persistent nausea and emesis. The patient states minimal bowel movements due to poor oral intake and feels dehydrated. The patient denied any specific documented fever, chills, or change to her chronic medication regimen. The patient was discharged from her recent hospitalization on Flagyl and ciprofloxacin, but was unable to take the medication due to persistent nausea and vomiting. In the emergency room, the patient underwent general evaluation including CT imaging of the abdomen and pelvis showing evidence of acute diverticulitis and diverticulosis of the sigmoid and splenic flexure region. The patient received IV Rocephin, Zofran, and intravenous normal saline. PAST MEDICAL HISTORY: 1. Liver cirrhosis, status post liver transplantation, on chronic immunosuppression. 2. Acute diverticulitis with recent hospitalization, 09/05/2019 through 09/08/2019. 3. Hypokalemia. 4. Acute kidney injury on chronic kidney disease, stage 3 to 4. 5. Moderate protein calorie malnutrition. 6. Hypertension. 7. Hepatitis C infection. 8. History of colon cancer, status post resection. 9. Gastroesophageal reflux disease. PAST SURGICAL HISTORY: 1. Status post colectomy secondary to colon cancer. 2. Status post colonoscopy with polypectomy. CURRENT MEDICATIONS: Based on recent admission, 08/2019. 1. ProAir HFA one puff inhaled q.4 hours p.r.n. 2. Enteric-coated aspirin 81 mg p.o. daily. 3. Biotin 5 mg p.o. daily. 4. Multivitamin with calcium 1 tablet p.o. daily. 5. Cyclosporine 50 mg p.o. b.i.d. 6. Magnesium 500 mg p.o. daily. 7. Multivitamin 1 tablet p.o. daily. 8. CellCept 500 mg p.o. b.i.d. 9. Ondansetron ODT 8 mg p.o. q.8 hours p.r.n. 10. Tenofovir 300 mg p.o. daily. 11. Tramadol/acetaminophen 37.5 mg/325 mg 1 tablet p.o. t.i.d. p.r.n. pain. 12. Ciprofloxacin 250 mg p.o. b.i.d. 13. Metronidazole 500 mg p.o. t.i.d. 14. Potassium chloride 40 mEq p.o. b.i.d. ALLERGIES: NO KNOWN DRUG ALLERGIES. FAMILY HISTORY: Father with diabetes mellitus. SOCIAL HISTORY: , accompanied by her in the emergency room. Former tobacco use, quitting in 2003. No alcohol or illicit drug use. REVIEW OF SYSTEMS: CONSTITUTIONAL: Negative for weight loss or gain, ability to conduct usual activities. SKIN: Negative for rash, itching. EYES: Negative for double vision, pain. ENT/MOUTH: Negative for nose bleeding, neck stiffness, pain, tenderness. CARDIOVASCULAR: Negative for palpitations, dyspnea on exertion, orthopnea. RESPIRATORY: Negative for shortness of breath, wheezing, cough, hemoptysis, fever or night sweats. GASTROINTESTINAL: Negative for poor appetite, abdominal pain, heartburn, nausea, vomiting, constipation, or diarrhea. GENITOURINARY: Negative for urgency, frequency, dysuria, nocturia. MUSCULOSKELETAL: Negative for pain, swelling. NEUROLOGIC/PSYCHIATRIC: Negative for anxiety, depression. ALLERGY/IMMUNOLOGIC: Negative for skin rash, bleeding tendency. Otherwise negative except as stated per HPI. PHYSICAL EXAMINATION: VITAL SIGNS: On admission, blood pressure 147/66, pulse 105, respiratory rate 19, temperature 98.1 degrees Fahrenheit, O2 saturation 99% on room air. GENERAL APPEARANCE: This is a 74-year-old female, chronically ill appearing, responsive to questions, in mild distress. HEENT: Pupils are equal, round, reactive to light and accommodation. Extraocular muscles are intact. No scleral icterus. No conjunctival injection. Nares patent. OP is clear. Oral mucosa dry. NECK: Supple. No cervical adenopathy. No thyromegaly. No carotid bruits. No JVD appreciated. Cervical spine with full active and passive range of motion. No meningeal signs noted. CHEST: Lungs are clear to auscultation bilaterally. CARDIOVASCULAR: S1, S2 without noted murmur, rub, or gallop. ABDOMEN: Flat with tenderness to palpation in the left upper and left lower quadrant. Bowel sounds diminished in all four quadrants, but present. No rebound or guarding appreciated. No CVA tenderness elicited. EXTREMITIES: Warm and dry with fair turgor. General muscle atrophy noted. Pulses are palpable distally at the dorsalis pedis, posterior tibial, and popliteal arteries bilaterally. Capillary refill less than 2 seconds. NEUROLOGIC: Cranial nerves 2 through 12 are grossly intact. No focal or lateralizing signs appreciated. PERTINENT LABORATORY AND X-RAY FINDINGS: Sodium 135, potassium 4.3, chloride 114, CO2 less than 8. BUN 21, creatinine 2.04, estimated GFR 24, glucose 90, calcium 10.1, magnesium 2.1, alkaline phosphatase 303, albumin 4.5. CBC showed a white blood cell count of 20.0, hemoglobin 13.5, hematocrit 42, platelet count 465 with 85% neutrophils, 10% bands. CT of the abdomen and pelvis dated 09/12/2019, showed positive colitis with mural thickening in the upper left colon at the splenic flexure. Inflammatory changes along the sigmoid colon with diffuse diverticulosis suggestive of diverticulitis. ASSESSMENT AND PLAN: 1. Acute diverticulitis/colitis. The patient will be admitted to the medical floor. We will initiate meropenem 1 g IV q.8 hours. Blood and urine cultures pending. Continue pain control with morphine sulfate 2 mg IV q.4 hours p.r.n. Consult GI Service for any further recommendations. 2. Nausea and vomiting secondary to acute diverticulitis/colitis. Continue antiemetics with Zofran 4 mg IV q.6 hours p.r.n. Clear liquids as tolerated. 3. Acute kidney injury on chronic kidney disease, stage 4. Avoid nephrotoxic agents and limit contrast exposure. Initiate intravenous normal saline at 100 mL/h. Serial creatinine monitoring. 4. Liver transplantation, on chronic immunosuppressive therapy. We will continue home regimen of cyclosporine 50 mg b.i.d. and CellCept 500 mg b.i.d. 5. Prophylaxis. SCDs while in bed. Pepcid 20 mg IV q.12 hours. CODE STATUS: Full. Surrogate medical decision maker is the patient's spouse. Job ID: [id number]
[2019-09-13 05:39] LABS: Band 5 % (5-11); Hemoglobin 11.4 g/dL (12.0-16.0); Hypochromia SLIGHT = 6-15 cells (100X) (0-5/hpf); Lymphocytes 2 % (21-51); MDiff Complete? YES; Mean Corpuscular HGB CONC 32.2 g/dL (32.0-36.0); Mean Corpuscular Hemoglobin 30.9 pg (27.0-31.0); Mean Corpuscular Volume 96.1 fL (78.0-98.0); Monocytes 2 % (0-10); Neutrophil 91 % (42-75); Platelet Count 487 thou/uL (130-400); Platelet Morphology Comment Appears Adequate; RBC Distribution Width 13.5 % (11.5-14.5); Red Blood Cell (RBC) Count 3.69 mill/uL (4.20-5.40); White Blood Cell (WBC) Count 21.2 thou/uL (4.8-10.8)
[2019-09-13 05:56] LABS: ALT (SGPT) Less than 7 U/L (8-55); AST (SGOT) 15 U/L (5-34); Albumin 3.4 g/dL (3.4-4.8); Alkaline Phosphatase 234 U/L (40-110); BUN (Urea Nitrogen) 20 mg/dL (9.8-20.1); Bilirubin, Total 0.2 mg/dL (0.2-1.2); Calc. Creatinine Clearance 18 mL/min (70-130); Calcium 9.1 mg/dL (7.8-10.44); Carbon Dioxide Less than 8 mmol/L (23-31); Chloride 117 mmol/L (98-107); Estimated GFR-MDRD 29; Globulin 3.4 g/dL (2.4-3.5); Glucose 86 mg/dL (83-110); Potassium 4.1 mmol/L (3.5-5.1); Protein, Total 6.8 g/dL (6.0-8.3); Sodium 134 mmol/L (136-145)
[2019-09-13] MEDS: Famotidine/PF 20 mg/2ml Vial SLOW IVP SCH (07:55)
[2019-09-13] MEDS: cycloSPORINE, Modified 25 MG CAP PO SCH ×2 (07:56→21:34)
[2019-09-13] MEDS: Aspirin 81 mg Enteric Coated Tablet PO SCH (07:56)
[2019-09-13] MEDS: Multivit, Therapeutic 1 TAB PO SCH (07:57)
[2019-09-13] MEDS: Mycophenolate 250 MG CAP PO SCH ×2 (08:02→21:35)
[2019-09-13] MEDS: Magnesium Oxide 250 MG TAB PO SCH (08:07)
[2019-09-13] MEDS: Sodium Chloride 0.9% 1,000 ML IV SCH (08:10)
[2019-09-13] MEDS ORDERED: Biotin [Biotin] 5 MG PO SCH (09:00)
[2019-09-13] MEDS ORDERED: Promethazine HCl 25 MG in Sodium Chloride 0.9% 50 ML IVPB PRN ×2 (10:58→17:10)
[2019-09-13] MEDS ORDERED: Ondansetron PF 4 MG/2 ML Vial IVP PRN (11:01)
[2019-09-13] MEDS ORDERED: Ondansetron HCl/PF 8 MG in Sodium Chloride 0.9% 50 ML IVPB PRN (11:08)
--- NOTE | 2019-09-13 11:14 | PDOC.HOSPP ---
- Subjective Encounter Date: 09/13/19 Encounter Time: 11:05 Subjective: f/u for acute diverticulitis on current Meropenem. c/o abd pain and persistent N /V not controlled with Zofran. - Objective Vital Signs & Weight: Vital Signs (12 hours) Temp Pulse Resp BP Pulse Ox 09/13/19 08:00 100 09/13/19 07:51 97.7 F 79 20 148/80 H 100 09/13/19 04:29 98.0 F 80 20 138/66 100 Weight Admit Weight 85 lb 7 oz Weight 85 lb 7 oz I&O: 09/12/19 09/13/19 09/14/19 06:59 06:59 06:59 Intake Total 950 Balance 950 Result Diagrams: 09/13/19 05:00 09/13/19 05:00 Additional Labs: Microbiology 09/12/19 18:13 Venous blood - Left Hand Blood Culture - Preliminary Specimen has been received and culture in progress. No Growth to date. 09/12/19 18:13 Venous blood - Left Hand Blood Culture - Preliminary Specimen has been received and culture in progress. No Growth to date. 09/05/19 00:45 Venous blood - Left Hand Blood Culture - Preliminary Specimen has been received and culture in progress. No Growth to date. 09/05/19 00:40 Venous blood - Right Hand Blood Culture - Preliminary Specimen has been received and culture in progress. No Growth to date. Laboratory Tests 09/04/19 09/04/19 09/04/19 22:43 22:43 22:43 WBC 12.9 H Hgb 11.1 L Plt Count Neutrophils % (Manual) Band Neuts % (Manual) Sodium Potassium 2.4 L* Carbon Dioxide Creatinine 2.34 H Phosphorus 1.9 L Alkaline Phosphatase 09/05/19 09/05/19 09/06/19 16:08 16:08 04:24 WBC 12.7 H Hgb 10.4 L Plt Count Neutrophils % (Manual) Band Neuts % (Manual) Sodium Potassium 3.0 L 2.4 L* Carbon Dioxide Creatinine 2.09 H 1.84 H Phosphorus Alkaline Phosphatase 09/06/19 09/12/19 09/12/19 16:06 18:16 18:16 WBC 20.0 H Hgb Plt Count 465 H Neutrophils % (Manual) 85 H Band Neuts % (Manual) 10 Sodium 135 L Potassium 3.4 L Carbon Dioxide Less than 8 L* Creatinine 1.86 H 2.04 H Phosphorus Alkaline Phosphatase 303 H 09/13/19 09/13/19 05:00 05:00 WBC Hgb Plt Count Neutrophils % (Manual) 91 H Band Neuts % (Manual) 5 Sodium Potassium Carbon Dioxide Creatinine Phosphorus Alkaline Phosphatase 234 H Hospitalist ROS - Medication Medications: Active Medications Generic Name Dose Route Start Last Admin Trade Name Freq PRN Reason Stop Dose Admin Aspirin 81 mg 09/13/19 09:00 09/13/19 07:56 Ecotrin PO 81 mg DAILY HENRY Administration Cyclosporine 50 mg 09/13/19 09:00 09/13/19 07:56 Neoral PO 50 mg BID HENRY Administration Famotidine 20 mg 09/13/19 09:00 09/13/19 07:55 Pepcid SLOW IVP 20 mg DAILY HENRY Administration Meropenem 1 gm/ Device 50 mls @ 100 mls/hr 09/12/19 23:59 09/13/19 07:54 IVPB 50 mls 0800,1600,[id number] HENRY Administration Sodium Chloride 1,000 mls @ 100 mls/hr 09/12/19 23:26 09/13/19 08:10 Normal Saline 0.9% IV 1,000 mls .Q10H HENRY Administration Magnesium Oxide 500 mg 09/13/19 09:00 09/13/19 08:07 Magnesium Oxide PO Not Given DAILY [facility] Multivitamins 1 tab 09/13/19 09:00 09/13/19 07:57 Theragran PO Not Given DAILY HENRY Mycophenolate Mofetil 500 mg 09/13/19 09:00 09/13/19 08:02 Cellcept PO 500 mg BID HENRY Administration Ondansetron HCl 4 mg 09/12/19 23:26 09/13/19 03:31 Zofran Odt PO 4 mg Q6H PRN Administration Nausea/Vomiting Tenofovir Disoproxil Fumarate 300 mg 09/13/19 09:00 09/13/19 08:06 Viread PO Not Given DAILY HENRY - Exam General Appearance: NAD, awake alert Eye: PERRL, anicteric sclera ENT: normocephalic atraumatic, no oropharyngeal lesions Neck: supple, symmetric, no JVD, no thyromegaly Heart: RRR, no gallops, no rubs, normal peripheral pulses Respiratory: CTAB, no wheezes, no rales, no ronchi Gastrointestinal: soft, non-distended, normal bowel sounds Gastrointestinal - other findings: mild TTP in LUQ Extremities: no cyanosis, no clubbing, no edema Skin: normal turgor, no lesions Neurological: cranial nerve grossly intact, no new deficit Musculoskeletal: generalized weakness, diffuse muscle atrophy Psychiatric: A&O x 3, flat affect Hosp A/P (1) Acute diverticulitis Code(s): K57.92 - DVTRCLI OF INTEST, PART UNSP, W/O PERF OR ABSCESS W/O BLEED Status: Acute Plan: Continue Meropenem 1gm IV q8h, GI consulted for any further recommendations, pain control as clinically indicated (2) EDGAR (acute kidney injury) Code(s): N17.9 - ACUTE KIDNEY FAILURE, UNSPECIFIED Status: Acute Plan: Improved with IVF's, avoid nephrotoxic meds and limit contrast exposure (3) Nausea & vomiting Code(s): R11.2 - NAUSEA WITH VOMITING, UNSPECIFIED Status: Acute Plan: Trial Phenergan 25mg IV q6h prn, increase Zofran 8mg IV q6h, clear liquids as tolerated (4) CKD (chronic kidney disease), stage IV Code(s): N18.4 - CHRONIC KIDNEY DISEASE, STAGE 4 (SEVERE) Status: Chronic Plan: See above (5) Protein-calorie malnutrition, moderate Code(s): E44.0 - MODERATE PROTEIN-CALORIE MALNUTRITION Status: Chronic Plan: Add Ensure Enlive when able to tolerate po intake - Plan continue antibiotics, PT/OT, social media assistant, out of bed/ambulate, DVT proph w/ SCDs Stable currently Continue Meropenem 1gm IV q8h Add Phenergan 25mg IV q6h prn N/V Change IVF D5NS @ 100ml/h Clear liquids as tolerated Await GI consultation AM lab: CMP, CBC
[2019-09-13] MEDS ORDERED: Morphine 2 MG/ML SYRINGE SLOW IVP SCH (14:00)
[2019-09-13] MEDS: Dextrose 5 % And 0.9 % NaCl 1,000 ML IV SCH ×2 (14:24→23:29)
[2019-09-13] MEDS: Morphine 2 MG/ML SYRINGE SLOW IVP PRN (18:02)
[2019-09-13] MEDS: Ondansetron HCl/PF 8 MG in Sodium Chloride 0.9% 50 ML IVPB SCH (21:34)
--- NOTE | 2019-09-14 00:15 | CON ---
DATE OF CONSULTATION: 09/13/2019 REASON FOR CONSULTATION: Recurrent diverticulitis in light of immunosuppression. CONSULTING PROVIDER: Dr. Osiel Shukla. HISTORY OF PRESENT ILLNESS: The patient is a 74-year-old female with past medical history of GERD; chronic hepatitis C infection, status post treatment; hypertension; moderate protein calorie malnutrition; chronic kidney disease stage 3/4; colon cancer, status post resection in 2016; and cirrhosis, status post transplant in August 2017, on immunosuppression; presenting with left lower quadrant abdominal pain. Per chart review, the patient was admitted to the hospital on September 05, 2019, with complaints of nausea, vomiting, and left lower quadrant abdominal pain. At that time, she had CT imaging consistent with a diagnosis of acute diverticulitis. Subsequently, she was placed on IV antibiotics, IV fluids, and pain control and responded well to more conservative management. She was ultimately discharged from the hospital on September 08, 2019, with oral antibiotics to complete her antibiotic regimen and was tolerating some nutritional intake by mouth at that time, but not much. However, shortly after discharge, the patient began to experience increased nausea and vomiting and was ultimately unable to keep down the oral antibiotics. Over the next few days, the patient began to have slow return of her nausea and vomiting in addition to subjective fevers and chills, which then prompted me readmission. Currently, the patient states that she continues to have the left lower quadrant abdominal pain characterized as a sharp/stabbing type sensation, is constant, nonradiating, and reaching a severity of 7/10 to 8/10. She adds that the abdominal pain is worse with increased physical activity and pressure to the region and alleviating factors including administration of pain medications during this and last hospitalization. Her last bowel movement was yesterday with a small solid type stool without any difficulty with defecation. Otherwise, she denies any hematemesis, melena, hematochezia, dysphagia, odynophagia, or diarrhea. She has had significant weight loss over the last few weeks due to her inability to tolerate adequate oral nutrition. Of note, the patient did have an orthotopic liver transplant in August 2017, for which the patient is currently taking CellCept and cyclosporine as part of her immunosuppression regimen. During the course of the hospitalization last week, she did not have any interruption of her immunosuppressive medications and was able to keep these medications down over the last few days as well. REVIEW OF SYSTEMS: A 10-category review of systems was obtained with all responses negative except for the pertinent positives as listed in HPI. PAST MEDICAL HISTORY: As per HPI. PAST SURGICAL HISTORY: Colonic malignancy, status post colectomy in 2017; colonoscopy. FAMILY HISTORY: Denies any GI malignancies. SOCIAL HISTORY: Denies any tobacco, alcohol, or illicit drug use. OUTPATIENT MEDICATIONS: Reviewed. ALLERGIES: NO KNOWN DRUG ALLERGIES. PHYSICAL EXAMINATION: VITAL SIGNS: Temperature 97.8, pulse 76, blood pressure 124/73, respiratory rate 18, saturating 100% on room air. GENERAL: The patient is lying in bed, in no acute distress. Alert and oriented x4. HEENT/NECK: Supple. No JVD or scleral icterus noted. Normocephalic, atraumatic. CARDIOVASCULAR: Regular rate and rhythm with no discernible murmurs, gallops, or rubs. RESPIRATORY: Clear to auscultation bilaterally with no discernible wheezes or rales. ABDOMEN: Normoactive bowel sounds. Soft, nondistended. Tenderness to palpation in all abdominal quadrants, but most especially the left upper quadrant and left lower quadrant. EXTREMITIES: No cyanosis, clubbing, or edema. LABORATORY DATA: CBC with a white blood cell count of 21.2, hemoglobin 11.4, hematocrit 35.5, platelets 487. Chemistry with a sodium of 134, potassium 4.1, chloride 117, CO2 less than 8, BUN 20, creatinine 1.71, glucose 86, AST 15, ALT less than 7, alkaline phosphatase 234, and total bilirubin 0.2. Blood cultures x2 are so far negative to date. IMAGING DATA: CT scan was obtained on September 12, 2019, which showed dense stool throughout the colon, including new areas of very dense stool with mural thickening at the splenic flexure and associated with surrounding inflammation. There was also mural thickening in the left colon with inflammatory change involving the splenic flexure and sigmoid colon along with diffuse diverticulosis consistent with a diagnosis of diverticulitis. ASSESSMENT AND PLAN: The patient is a 74-year-old female with past medical history of gastroesophageal reflux disease; chronic hepatitis C infection, status post treatment; hypertension; moderate protein calorie malnutrition; chronic kidney disease stage 3/4; colon cancer, status post resection in 2016; cirrhosis, status post OLT in August 2017, on immunosuppression, presenting with acute uncomplicated diverticulitis. 1. Acute uncomplicated diverticulitis. The patient was initially admitted to the hospital on September 05, 2019, with a clinical history and imaging findings consistent with a diagnosis of acute uncomplicated diverticulitis. She was subsequently placed on IV antibiotics in addition to pain control and IV fluids and responded well to conservative management. During the course of that hospitalization, she did well, although she was unable to tolerate much nutrition by mouth and so far has been able to do so for least the last 2 weeks. She was ultimately discharged to home with plans to take oral antibiotics to complete the regimen for diverticulitis. However, shortly after discharge, she began to have increasing nausea and vomiting with inability to tolerate p.o. and inability to keep her antibiotics down long enough to provide a significant benefit. As such, she began to have progressive worsening of her left lower quadrant abdominal pain in addition to subjective fevers and chills, which ultimately brought her back to the hospital. Currently, she has an elevated white blood cell count, left lower quadrant abdominal pain and imaging findings consistent with diverticulitis making the diagnosis more likely. However, with extension of the inflammatory changes in her colon up into the splenic flexure, ischemic colitis is also within the differential. Given the presence of very dense hard stool on the CT scan, it could potentially generate stercoral colitis as well, which then could further contribute to recurrence of her diverticulitis. Recommendations;. a. Would continue with the current antibiotic regimen of meropenem 1 g every 8 hours in light of a more severe infection of diverticulitis in an immunosuppressed patient. b. We will continue clear-liquid diet for now and avoid attempts at advancing it until her nausea, vomiting are under better control. c. We would schedule the IV Zofran for more basal antiemetic relief and use of Phenergan as needed for any breakthrough symptoms. d. Would continue IV fluid as you are doing to maintain proper hydration and to help reverse acidemia. If the patient is not correcting, would also consider administration of bicarb. 2. Cirrhosis/orthotopic liver transplantation. The patient is presenting with a prior diagnosis of cirrhosis that upon chart review appears to be either from chronic hepatitis C infection or chronic alcohol abuse or combination of the two. Her prior liver disease was complicated by ascites and esophageal varices. However, the patient underwent an orthotopic liver transplant in August 2017 and since then has been doing well. Currently on immunosuppressive regimen including CellCept and cyclosporine with resultant chronic kidney disease, most likely resulting from the use of cyclosporine. She is also on Tenofovir as part of an antiviral regimen related to her liver transplant. Currently presenting with labs consistent with normal liver function and doing well. However, given her current infection, disruption of her immunosuppression medications could be problematic. I would continue the IV fluids and antibiotic support as we are doing right now with continuation of her immunosuppressive regimen unless the patient severely decompensates and/or exhibits septic shock. Recommendations;. a. Would continue current immunosuppressive regimen. b. Would continue to monitor the patient's liver function in light of active infection. We will continue to follow. Please call with any questions. Job ID: [id number]
[2019-09-14] MEDS: Morphine 2 MG/ML SYRINGE SLOW IVP PRN ×4 (03:53→21:17)
[2019-09-14 05:34] LABS: Band 1 % (5-11); Eosinophils 3 % (0-10); Hemoglobin 9.2 g/dL (12.0-16.0); Lymphocytes 6 % (21-51); MDiff Complete? YES; Mean Corpuscular HGB CONC 32.5 g/dL (32.0-36.0); Mean Corpuscular Hemoglobin 30.8 pg (27.0-31.0); Mean Corpuscular Volume 94.9 fL (78.0-98.0); Mean Platelet Volume 7.7 fL (7.4-10.4); Monocytes 6 % (0-10); Neutrophil 84 % (42-75); Platelet Count 345 thou/uL (130-400); Platelet Morphology Comment Appears Adequate; RBC Distribution Width 13.9 % (11.5-14.5); Red Blood Cell (RBC) Count 2.99 mill/uL (4.20-5.40); White Blood Cell (WBC) Count 10.5 thou/uL (4.8-10.8)
[2019-09-14] MEDS: Ondansetron HCl/PF 8 MG in Sodium Chloride 0.9% 50 ML IVPB SCH ×3 (05:37→22:31)
[2019-09-14 05:55] LABS: ALT (SGPT) Less than 7 U/L (8-55); AST (SGOT) 10 U/L (5-34); Alkaline Phosphatase 205 U/L (40-110); Anion Gap 8 mmol/L (10-20); BUN (Urea Nitrogen) 16 mg/dL (9.8-20.1); Bilirubin, Total 0.2 mg/dL (0.2-1.2); Calc. Creatinine Clearance 20 mL/min (70-130); Calcium 8.6 mg/dL (7.8-10.44); Chloride 124 mmol/L (98-107); Estimated GFR-MDRD 34; Globulin 2.4 g/dL (2.4-3.5); Glucose 119 mg/dL (83-110); Protein, Total 5.4 g/dL (6.0-8.3); Sodium 138 mmol/L (136-145)
[2019-09-14 06:00] LABS: Carbon Dioxide 9 mmol/L (23-31); Potassium 2.6 mmol/L (3.5-5.1)
[2019-09-14] MEDS ORDERED: Potassium Chloride 20 MEQ TAB PO SCH (08:00)
[2019-09-14] MEDS: MEROPENEM 1 GM/50 ML 1 GM in Premix Bag 1 BAG IVPB SCH ×2 (10:15→16:15)
[2019-09-14] MEDS: cycloSPORINE, Modified 25 MG CAP PO SCH ×2 (10:20→21:11)
[2019-09-14] MEDS: Mycophenolate 250 MG CAP PO SCH ×2 (10:25→21:11)
[2019-09-14] MEDS: Aspirin 81 mg Enteric Coated Tablet PO SCH (10:26)
[2019-09-14] MEDS: Famotidine/PF 20 mg/2ml Vial SLOW IVP SCH (10:26)
[2019-09-14] MEDS: Multivit, Therapeutic 1 TAB PO SCH (10:27)
[2019-09-14] MEDS: Magnesium Oxide 250 MG TAB PO SCH (10:27)
[2019-09-14] MEDS: D5 NS w/ 40 mEq KCl 1,000 ML IV SCH ×2 (13:25→22:33)
[2019-09-14] MEDS ORDERED: Potassium Chloride 40 MEQ in Sodium Chloride 0.9% 250 ML 250 ML IVPB SCH (15:45)
[2019-09-14] MEDS: Potassium Chloride 20 MEQ TAB PO SCH ×2 (16:13→21:11)
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
[2019-09-14] MEDS ORDERED: Promethazine HCl 12.5 MG in Sodium Chloride 0.9% 50 ML IVPB PRN (17:45)
--- NOTE | 2019-09-14 19:18 | PRG ---
DATE OF SERVICE: 09/14/2019 REASON FOR CONSULTATION: Recurrent diverticulitis in light of immunosuppression for liver transplant. SUBJECTIVE: Per nursing staff over the last 12 to 24 hours, the patient has not had any further episodes of vomiting, although she did exhibit some increased nausea this morning. She was ultimately given Phenergan as part of these breakthrough symptoms and has displayed significant somnolence afterward. During the course of the day, she was unable to tolerate much of an oral diet either with her only being able to drink some Ensure and other clear liquids, but not significant enough to maintain nutrition. Currently, she denies any fever, shivering or shaking chills, hematemesis, melena, or hematochezia. She does continue to have left lower quadrant abdominal pain that is relatively unchanged, albeit possibly slightly improved when compared to yesterday. OBJECTIVE: VITAL SIGNS: Temperature 97.6, pulse 69, blood pressure 143/71, respiratory rate 20, saturating 98% on room air. GENERAL: The patient was lying in bed, in no acute distress. Alert and oriented x3. Somnolent to the interview. CARDIOVASCULAR: Regular rate and rhythm. RESPIRATORY: Clear to auscultation bilaterally. ABDOMEN: Normoactive bowel sounds. Soft, nondistended. Tenderness to palpation in the left upper quadrant, left lower quadrant, and periumbilical regions. EXTREMITIES: No cyanosis, clubbing, or edema. LABORATORY DATA: CBC with a white blood cell count of 10.5, hemoglobin 9.2, hematocrit 28.4, and platelets 345. Chemistry with a sodium of 138, potassium 2.6, chloride 124, CO2 of 9, BUN 16, creatinine 1.5, glucose 119. Blood cultures positive x2 for gram-positive cocci. AST 10, ALT less than 7, alkaline phosphatase 205, and total bilirubin 0.2. IMAGING DATA: No current GI imaging is available for review. ASSESSMENT AND PLAN: The patient is a 74-year-old female, with past medical history of gastroesophageal reflux disease, chronic hepatitis C infection, status post treatment, hypertension, moderate protein-calorie malnutrition, chronic kidney disease stage 3/4, colon cancer, status post resection in 2016, cirrhosis, status post OLT in August 2017, on immunosuppression, who is presenting with acute uncomplicated diverticulitis. Acute uncomplicated diverticulitis. The patient was initially admitted to the hospital on September 05, 2019, with the diagnosis of acute uncomplicated diverticulitis. She initially responded to IV antibiotics and n.p.o. status and was ultimately discharged to home on oral antibiotics. However, she exhibited increased nausea and vomiting at home and was unable to tolerate any medications, prompting her return to the hospital for further antibiotic therapy via IV. Currently, she is on meropenem 1 g t.i.d. and has been able to tolerate this medication well with a significant decrease in her white blood cell count today on labs indicating probable response to treatment. However, she does have gram-positive cocci growing up from her blood cultures, which is concerning for a superimposed blood infection. RECOMMENDATIONS: 1. We would continue the current antibiotic regimen of meropenem 1 g every 8 hours in light of diverticulitis in an immunosuppressed patient. 2. We would attempt to advance the patient's diet with more full liquid type food stuffs now that nausea and vomiting under better control. 3. Agree with decreasing the Phenergan for any breakthrough nausea given significant somnolence on exam today. 4. We would continue scheduled IV Zofran for basal antiemetic relief. 5. We will continue with IV fluid rehydration. 6. If the patient is unable to tolerate an adequate diet within the next 12 to 24 hours, we will consider placing a Dobbhoff tube for decompression of her stomach, which would then help with nausea and vomiting in addition to allowing a route for further nutritional purposes. I would also recommend having the patient maintain an upright posture for at least a couple of hours after she eats to prevent significant acid reflux, which could contribute to nausea and vomiting. 7. Cirrhosis/orthotopic liver transplantation. The patient is presenting with a prior diagnosis of cirrhosis that upon chart review appeared to be from either chronic hepatitis C infection or chronic alcohol abuse or combination of the two. Subsequently, she underwent orthotopic liver transplant in August 2017 and had been doing well since then while on an immunosuppressive regimen including CellCept and cyclosporine. However, she has had some resultant chronic kidney disease, most likely from the use of cyclosporine. Given her current infection, she is currently covered with appropriate antibiotics, but disruption of her immunosuppression medications could be potentially problematic. I would continue IV fluids and antibiotic support in addition to her immunosuppressive medications for now, but could potentially withdraw these medications if the patient's condition worsens. RECOMMENDATIONS: 1. We will continue current immunosuppressive regimen. 2. Continues to monitor the patient's liver function in light of this infection. We will continue to follow. Please call with any questions. Job ID: [id number]
[2019-09-14] MEDS: Dextrose 5 % And 0.9 % NaCl 1,000 ML IV SCH (19:35)
[2019-09-15] MEDS: MEROPENEM 1 GM/50 ML 1 GM in Premix Bag 1 BAG IVPB SCH ×3 (00:25→15:56)
[2019-09-15] MEDS: D5 NS w/ 40 mEq KCl 1,000 ML IV SCH ×2 (05:30→18:32)
[2019-09-15] MEDS: Ondansetron HCl/PF 8 MG in Sodium Chloride 0.9% 50 ML IVPB SCH ×3 (05:30→21:52)
[2019-09-15 06:03] LABS: Anion Gap 7 mmol/L (10-20); BUN (Urea Nitrogen) 11 mg/dL (9.8-20.1); Calc. Creatinine Clearance 21 mL/min (70-130); Calcium 8.3 mg/dL (7.8-10.44); Carbon Dioxide 11 mmol/L (23-31); Estimated GFR-MDRD 36; Glucose 99 mg/dL (83-110); Sodium 142 mmol/L (136-145)
[2019-09-15 06:12] LABS: Chloride 127 mmol/L (98-107); Potassium 2.8 mmol/L (3.5-5.1)
[2019-09-15 06:14] LABS: Band 15 % (5-11); Hemoglobin 8.9 g/dL (12.0-16.0); Lymphocytes 7 % (21-51); MDiff Complete? YES; Mean Corpuscular HGB CONC 32.2 g/dL (32.0-36.0); Mean Corpuscular Volume 93.2 fL (78.0-98.0); Mean Platelet Volume 8.1 fL (7.4-10.4); Monocytes 6 % (0-10); Myelocyte 1 % (0-0); Neutrophil 70 % (42-75); Platelet Count 316 thou/uL (130-400); RBC Distribution Width 13.8 % (11.5-14.5); Red Blood Cell (RBC) Count 2.95 mill/uL (4.20-5.40); White Blood Cell (WBC) Count 7.8 thou/uL (4.8-10.8)
[2019-09-15] MEDS ORDERED: Potassium Chloride 40 MEQ in Sodium Chloride 0.9% 250 ML 250 ML IVPB SCH (07:00)
[2019-09-15] MEDS: Morphine 2 MG/ML SYRINGE SLOW IVP PRN ×2 (08:13→12:47)
[2019-09-15] MEDS: Famotidine/PF 20 mg/2ml Vial SLOW IVP SCH (08:17)
[2019-09-15 09:57] LABS: Magnesium 1.7 mg/dL (1.6-2.6)
[2019-09-15 10:03] LABS: Lactic Acid 0.6 mmol/L (0.5-2.2)
[2019-09-15 10:12] LABS: Phosphorus Less than 1.0 mg/dL (2.3-4.7)
[2019-09-15] MEDS ORDERED: Potassium Phosphate 30 MMOL in Sodium Chloride 0.9% 500 ML IVPB SCH (10:15)
--- NOTE | 2019-09-15 10:24 | PRG ---
DATE OF SERVICE: 09/15/2019 SUBJECTIVE: The patient is seen and examined at the bedside. She feels ready to eat her breakfast. She was changed to regular diet by Dr. Diallo. She was not able to participate in physical therapy session yesterday because of her sedation from Phenergan use for her nausea. OBJECTIVE: VITAL SIGNS: Blood pressure is 126/73, pulse is 79, temperature is 98.5, maximal temperature is 98.8, respirations 16, and O2 saturation is 100% on room air. GENERAL: She looks tired and still sick and emaciated. HEENT: Her sclerae are nonicteric. Oral mucosa is slightly dry. NECK: Supple. LUNGS: Clear. HEART: S1 and S2 normal. No S3. No S4. No any murmur. ABDOMEN: Soft. Mildly tender in the left part of the abdomen. No guarding. No masses. EXTREMITIES: No clubbing, cyanosis, or edema. NEUROLOGIC: She is alert and oriented x4. There are no any motor or sensory deficits. Cranial nerves are intact. LABORATORY DATA: Labs showed white count of 7.9, hemoglobin 8.9, hematocrit 27.5, platelet count is 316,000. Sodium of 142, potassium 2.8, chloride 127, CO2 of 11, BUN 11, creatinine 1.43. Microbiology, blood culture presumptive micrococcus species of two cultures positive. IMPRESSION: 1. Acute diverticulitis. 2. Acute kidney injury. 3. Nausea and vomiting, improved. 4. Chronic kidney disease, stage 4. 5. Protein-calorie malnutrition. 6. Severe hypokalemia. 7. Severe metabolic acidosis. 8. Bacteremia caused by micrococcus. DISCUSSION: We will continue meropenem 1 g every 8 hours. We will get ID consult for her bacteremia. We will continue p.r.n. antiemetics. Continue IV fluids. Check lactic acid and phosphorus levels. Start her diet. Continue PT and we will follow up with the labs in the morning. Job ID: [id number]
[2019-09-15] MEDS: Magnesium Oxide 250 MG TAB PO SCH (12:22)
[2019-09-15] MEDS: Multivit, Therapeutic 1 TAB PO SCH (12:22)
[2019-09-15] MEDS: Potassium Chloride 20 MEQ TAB PO SCH ×3 (12:22→20:46)
[2019-09-15] MEDS: Aspirin 81 mg Enteric Coated Tablet PO SCH (12:22)
[2019-09-15] MEDS: Mycophenolate 250 MG CAP PO SCH ×2 (13:33→20:47)
[2019-09-15] MEDS: cycloSPORINE, Modified 25 MG CAP PO SCH ×2 (13:33→20:46)
--- NOTE | 2019-09-15 15:05 | PRG ---
DATE OF SERVICE: 09/15/2019 REASON FOR CONSULTATION: Recurrent diverticulitis in light of immunosuppression for liver transplant. SUBJECTIVE: The patient appears to be more alert and active compared to yesterday and was able to participate with physical therapy earlier this morning. She has also consumed a bit more as part of her breakfast, but as of yet has not been able to tolerate much of her diet. She adds that her left lower quadrant abdominal pain is somewhat improved and currently controlled with narcotic medications. Otherwise, she denies any nausea, vomiting, fevers, chills, GI bleeding, dysphagia, or odynophagia. OBJECTIVE: VITAL SIGNS: Temperature 98.5, pulse 79, blood pressure 126/73, respiratory rate 16, saturating 100% on room air. GENERAL: The patient was lying in bed, in no acute distress. Alert and oriented x4. CARDIOVASCULAR: Regular rate and rhythm. RESPIRATORY: Clear to auscultation bilaterally. ABDOMEN: Normoactive bowel sounds. Soft and nondistended. Tenderness to palpation in the left upper quadrant and left lower quadrant. EXTREMITIES: No cyanosis, clubbing, or edema. LABORATORY DATA: CBC with a white blood cell count of 7.8, hemoglobin 8.9, hematocrit 27.5, platelets 316. Chemistry with a sodium of 142, potassium is 2.8, chloride 127, CO2 of 11, BUN 11, creatinine 1.43, glucose 99. IMAGING DATA: No current GI imaging is available for review. ASSESSMENT AND PLAN: The patient is a 74-year-old female with past medical history of gastroesophageal reflux disease; chronic hepatitis C infection, status post treatment; hypertension; moderate protein-calorie malnutrition; chronic kidney disease, stage 3/4; colon cancer, status post resection in 2016; cirrhosis, status post orthotopic liver transplantation in August 2017, on immunosuppression, who is presenting with acute uncomplicated diverticulitis. Acute uncomplicated diverticulitis: The patient was initially admitted to the hospital on September 05, 2019, with a diagnosis of acute uncomplicated diverticulitis. She initially responded well to IV antibiotics and was ultimately discharged to home on oral antibiotics; however, at home, she exhibited increased nausea and vomiting with inability to take her oral antibiotics and was subsequently re-admitted to the hospital with recurrence of her left lower quadrant abdominal pain and inability to tolerate adequate diet. Currently, she is slowly improving while on IV antibiotic therapy and has been able to tolerate a little bit more diet today when compared to previous. Recommendations: 1. We would continue current antibiotic regimen of meropenem 1 g every 8 hours in light of diverticulitis in an immunosuppressed patient. 2. We would liberalize the patient's diet with more full liquid type food stuffs including Ensure or Boost now that her nausea and vomiting are under better control. 3. We would minimize administration of Phenergan for any breakthrough nausea given her significant somnolence yesterday. 4. We would continue scheduled IV Zofran for basal antiemetic relief. 5. Continue with IV fluid rehydration until the patient is tolerating adequate oral intake. 6. If the patient is unable to tolerate adequate nutritional intake, we would consider placing a Dobhoff tube for nutritional purposes, but is not indicated at this time. Cirrhosis/orthotopic liver transplantation: The patient underwent orthotopic liver transplantation in August 2017, and has been doing well while on immunosuppressant therapy including CellCept and cyclosporine. However, she does have some chronic kidney disease, most likely from the use of cyclosporine. Given her current infection, she is being treated appropriately with antibiotics while on immunosuppression. Recommendations: 1. We would continue current immunosuppressive regimen. 2. We would continue to monitor the patient's liver function periodically throughout this admission. We will continue to follow. Please call with any questions. Dr. Ken will be on-call this weekend. Please direct any questions to him. Job ID: [id number]
[2019-09-16] MEDS: MEROPENEM 1 GM/50 ML 1 GM in Premix Bag 1 BAG IVPB SCH ×3 (00:25→16:10)
[2019-09-16] MEDS: D5 NS w/ 40 mEq KCl 1,000 ML IV SCH ×2 (04:40→11:52)
[2019-09-16] MEDS: Ondansetron HCl/PF 8 MG in Sodium Chloride 0.9% 50 ML IVPB SCH ×2 (05:48→08:27)
[2019-09-16 06:18] LABS: Chloride 124 mmol/L (98-107); Potassium 3.2 mmol/L (3.5-5.1)
[2019-09-16] MEDS: cycloSPORINE, Modified 25 MG CAP PO SCH ×2 (08:25→20:37)
[2019-09-16] MEDS: Magnesium Oxide 250 MG TAB PO SCH (08:25)
[2019-09-16] MEDS: Multivit, Therapeutic 1 TAB PO SCH (08:26)
[2019-09-16] MEDS: Mycophenolate 250 MG CAP PO SCH ×2 (08:26→20:38)
[2019-09-16] MEDS: Famotidine/PF 20 mg/2ml Vial SLOW IVP SCH (08:27)
[2019-09-16] MEDS: Morphine 2 MG/ML SYRINGE SLOW IVP PRN (08:32)
[2019-09-16] MEDS: Potassium Chloride 20 MEQ TAB PO SCH ×2 (08:37→11:53)
[2019-09-16] MEDS ORDERED: Potassium Chloride 20 MEQ in Premix Bag 1 BAG IVPB SCH (09:15)
[2019-09-16] MEDS ORDERED: TRAMADOL PO PRN (10:48)
[2019-09-16] MEDS ORDERED: ACETAMINOPHEN PO PRN (10:48)
[2019-09-16] MEDS: Aspirin 81 mg Enteric Coated Tablet PO SCH (11:06)
[2019-09-16] MEDS ORDERED: Iopamidol-370 76% 500 ML 1 ML ONE (11:54)
--- NOTE | 2019-09-16 12:14 | PRG ---
DATE OF SERVICE: 09/16/2019 SUBJECTIVE: The patient is seen and examined at the bedside. She refused to have PT session yesterday. She said that there were so many people in the room and she could not do it. She started taking some liquids orally and she has some abdominal discomfort, which is mainly located in the left abdomen. No nausea. No vomiting. OBJECTIVE: VITAL SIGNS: Blood pressure is 120/74, pulse is 73, temperature is 98.2, respirations 16, and O2 saturation is 99% on room air. HEENT: Her eyes are PERRLA. Sclerae are nonicteric. Oral mucosa is moist. NECK: Supple. LUNGS: Clear. HEART: S1 and S2 normal. ABDOMEN: Nondistended, but slightly tender in the left side of the abdomen. No guarding. No masses. Bowel sounds are present. No organomegaly. EXTREMITIES: No clubbing, cyanosis, or edema. NEUROLOGICAL: She follows my commands. She moves her all 4 extremities. LABORATORY DATA: Showed potassium of 3.2, chloride 124, CO2 of 9, creatinine 1.32, and phosphorus 3.0. IMPRESSION: 1. Acute diverticulitis, on meropenem. 2. Acute kidney injury, gradually improving with IV hydration. 3. Chronic kidney disease, stage 4. 4. Protein-calorie malnutrition. 5. Severe hypokalemia under supplementation. 6. Severe metabolic acidosis. I think this is related to her previous colon surgery and partial colon resection. We will have director oncology to evaluate her current status. 7. Bacteremia caused by micrococcus. PLAN: Plan is to consult ID. Continue current regimen with meropenem. The diet will be advanced per GI. We will replace her potassium and we will encourage her to do physical therapy. Job ID: [id number]
[2019-09-16] MEDS: traMADol HCl 50 MG TAB PO PRN (12:40)
[2019-09-16 17:20] LABS: Actual Bicarbonate (HCO3a) 10.1 mEq/L (22-28); Base Excess (BEa) -15.5 mEq/L (-2.0 to +3.0); Calcium, Ionized 1.26 mmol/L (1.12-1.30); Hemoglobin (Hb) 9.5 g/dL (12.0-16.0); O2 Tension (PaO2) 103.2 mmHg (> 70.0); Potassium - ABG Lab 3.63 mmol/L (3.70-5.30)
[2019-09-16 17:27] LABS: CO2 Tension 23.3 mmHg (35.0-45.0); Puncture Site RBA; pH, Arterial 7.25 (7.35-7.45)
[2019-09-16 17:28] LABS: ALV-art Gradient 17.405 (0-20)
[2019-09-16] MEDS: Sodium Bicarbonate Tab 325 MG TAB PO SCH (20:37)
[2019-09-16] MEDS ORDERED: Sodium Bicarbonate 150 MEQ in Dextrose 5% in Water 1,000 ML IV SCH (22:00)
[2019-09-16] MEDS: Potassium Chloride 20 MEQ in Premix Bag 1 BAG IVPB SCH (22:00)
[2019-09-17] MEDS: Potassium Chloride 20 MEQ in Premix Bag 1 BAG IVPB SCH ×5 (00:13→18:53)
[2019-09-17] MEDS: Ondansetron HCl/PF 8 MG in Sodium Chloride 0.9% 50 ML IVPB SCH ×4 (01:09→23:35)
[2019-09-17] MEDS: D5 NS w/ 40 mEq KCl 1,000 ML IV SCH ×3 (01:09→16:20)
--- NOTE | 2019-09-17 01:11 | PRG ---
DATE OF SERVICE: 09/17/2019 SUBJECTIVE: A 74-year-old female being seen for acute kidney injury and acidosis. The patient denies any nausea, vomiting, or chest pain. OBJECTIVE: See above. CONSTITUTIONAL: The patient is resting. Awake, alert, in no acute distress. VITAL SIGNS: Afebrile, pulse , breathing 16, and blood pressure 130/74. GENERAL APPEARANCE AND MENTAL STATUS: Fair. HEAD/NECK: Normocephalic. Atraumatic. EYES: EOMI. No deformity. EARS: Clear. No ulcers. NOSE: Intact. No lesions. MOUTH: Clear. No discharge. THROAT: Clear. No exudate. LUNGS: Clear. No crackles. CARDIAC: S1, S2. No rub. ABDOMEN: Benign. Bowel sounds positive. GENITALIA/RECTUM: Yeung absent. BACK/EXTREMITIES: Edema 0+. NEUROLOGICAL: Alert and motor intact. SKIN: LYMPHATICS: LABORATORY DATA: Reviewed. ASSESSMENT AND PLAN: 1. Stage chronic kidney disease, stable. 2. Acute kidney injury, stable. 3. Metabolic acidosis. Agree with CAT scan and surgery consultation. Continue bicarb drip. 4. Hypokalemia. Going to replace aggressive potassium first then start bicarbonate. 5. Medication based on GFR appropriate. PROGNOSIS: Overall prognosis is poor. Job ID: [id number]
[2019-09-17 01:33] LABS: BUN (Urea Nitrogen) 9 mg/dL (9.8-20.1); Calc. Creatinine Clearance 24 mL/min (70-130); Calcium 8.5 mg/dL (7.8-10.44); Estimated GFR-MDRD 41; Glucose 83 mg/dL (83-110); Potassium 4.6 mmol/L (3.5-5.1); Sodium 141 mmol/L (136-145)
[2019-09-17 01:37] LABS: Carbon Dioxide Less than 8 mmol/L (23-31); Chloride 126 mmol/L (98-107)
[2019-09-17] MEDS: MEROPENEM 1 GM/50 ML 1 GM in Premix Bag 1 BAG IVPB SCH ×3 (02:44→14:44)
--- NOTE | 2019-09-17 02:46 | CON ---
DATE OF CONSULTATION: TIME OF CONSULTATION: 9:00 p.m. HISTORY OF PRESENT ILLNESS: A very pleasant 74-year-old female, who presented to the hospital on September 12, with severe metabolic acidosis as well as hypokalemia. The patient denied any nausea, vomiting, diarrhea, or chest pain. Her creatinine on admission was 2, which has improved to 1.3, but remains acidotic, so I was consulted again at 9:30 p.m. on September 16, 2019. PAST MEDICAL HISTORY: Significant for hypertension, liver transplant, history of colonic malignancy, colectomy, colonoscopy, cirrhosis, hypertension, protein-calorie malnutrition, hepatitis C infection, GERD, status post transplant in August 2017, immunosuppression, diverticulitis. SOCIAL HISTORY: No alcohol or drug use. FAMILY HISTORY: Negative for ESRD. ALLERGIES: REVIEWED. HOME MEDICATIONS: List reviewed. HOSPITAL MEDICATIONS: List reviewed. REVIEW OF SYSTEMS: A 15-point review of system was performed negative except for positives noted above. GENERAL: HEAD: NECK: No swelling or lumps. NOSE: No epistaxis or discharge. EYES: No diplopia or pain. 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 NEUROPSYCHIATIC SYSTEMS: No suicidal ideation. No ideation. SKIN: Denies any rash or ulcer. CONSTITUTIONAL: No fever or chills. PHYSICAL EXAMINATION: CONSTITUTIONAL: The patient is awake and alert. VITAL SIGNS: Afebrile, pulse 99, breathing 16, blood pressure 130/74. GENERAL APPEARANCE AND MENTAL STATUS: Fair. HEAD/NECK: Normocephalic. Atraumatic. EYES: EOMI. No deformity. EARS: Clear. No ulcers. NOSE: Intact. No lesions. MOUTH: Clear. No discharge. THROAT: Clear. No exudate. LUNGS: Clear. No crackles. CARDIAC: S1, S2. No rub. ABDOMEN: Benign. Bowel sounds positive. GENITALIA/RECTUM: Yeung absent. BACK/EXTREMITIES: Edema 0+. NEUROLOGICAL: Alert and motor intact. SKIN: LYMPHATICS: LABORATORY DATA: Reviewed. ASSESSMENT AND PLAN: 1. Acute kidney injury with chronic kidney disease and acidosis with hypokalemia. I will fix the hypokalemia first and correct the metabolic acidosis. I would recommend getting a blood gas. 2. Anemia, stable. 3. Acidosis. I have advised the primary team to look for any GI cause of metabolic acidosis such as ischemic bowel. This was conveyed to the primary team. 4. Hypokalemia. We will fix the hypokalemia first. 5. Acute kidney injury, stable due to ATN. Overall prognosis is poor. Job ID: [id number]
[2019-09-17] MEDS: Sodium Bicarbonate 150 MEQ in Dextrose 5% in Water 1,000 ML IV SCH ×2 (03:18→14:44)
[2019-09-17 06:24] LABS: #Eosinphils 0.3 thou/uL (0.0-0.7); #Lymphocytes 1.1 thou/uL (1.20-3.40); #Monocytes 0.5 thou/uL (0.11-0.59); #Neutrophils 5.2 thou/uL (1.40-6.50); %Basophils 0.3 % (0.0-1.0); %Eosinophils 4.2 % (0.0-10.0); %Lymphocytes 15.2 % (21.0-51.0); %Monocytes 6.9 % (0.0-10.0); %Neutrophils 73.3 % (42.0-75.0); Hemoglobin 9.1 g/dL (12.0-16.0); Mean Corpuscular Hemoglobin 30.4 pg (27.0-31.0); Mean Corpuscular Volume 92.2 fL (78.0-98.0); Mean Platelet Volume 8.3 fL (7.4-10.4); Platelet Count 296 thou/uL (130-400); RBC Distribution Width 13.8 % (11.5-14.5)
[2019-09-17 06:45] LABS: ALT (SGPT) Less than 7 U/L (8-55); AST (SGOT) 15 U/L (5-34); Albumin 2.9 g/dL (3.4-4.8); Alkaline Phosphatase 191 U/L (40-110); Anion Gap 9 mmol/L (10-20); BUN (Urea Nitrogen) 8 mg/dL (9.8-20.1); Bilirubin, Total 0.3 mg/dL (0.2-1.2); Calc. Creatinine Clearance 26 mL/min (70-130); Calcium 8.2 mg/dL (7.8-10.44); Carbon Dioxide 12 mmol/L (23-31); Chloride 119 mmol/L (98-107); Estimated GFR-MDRD 44; Globulin 2.4 g/dL (2.4-3.5); Glucose 89 mg/dL (83-110); Magnesium 1.6 mg/dL (1.6-2.6); Phosphorus 1.7 mg/dL (2.3-4.7); Potassium 3.4 mmol/L (3.5-5.1); Protein, Total 5.3 g/dL (6.0-8.3); Sodium 137 mmol/L (136-145)
[2019-09-17] MEDS ORDERED: Potassium Phosphate 20 MMOL in Sodium Chloride 0.9% 250 ML 250 ML IVPB SCH (07:30)
[2019-09-17] MEDS: Magnesium Oxide 250 MG TAB PO SCH (07:43)
[2019-09-17] MEDS: Multivit, Therapeutic 1 TAB PO SCH (07:43)
[2019-09-17] MEDS: Potassium Chloride 20 MEQ TAB PO SCH (07:43)
[2019-09-17] MEDS: Aspirin 81 mg Enteric Coated Tablet PO SCH (07:43)
[2019-09-17] MEDS: cycloSPORINE, Modified 25 MG CAP PO SCH ×3 (07:50→20:53)
--- NOTE | 2019-09-17 08:07 | CT ---
PRELIMINARY REPORT/[facility]/AFTER HOURS PROCEDURE CT ABDOMEN AND PELVIS WITH INTRAVENOUS CONTRAST: CLINICAL HISTORY: Prior study....IP [id number]....Possible ischemic bowel. Surgical history cheryl and liver transplant. TECHNIQUE: Axial computed tomography images of the abdomen and pelvis with intravenous contrast. CONTRAST: IV ISOVIEW 370MG 100 ML PO ISOVIEW 370MG 50 ML DILUTED WITH 300CC OF TAP WATER COMPARISON: None provided. FINDINGS: LUNG BASES: No basilar airspace consolidation or pleural effusion. LIVER: Unremarkable. GALLBLADDER AND BILE DUCTS: Unremarkable. No calcified stone. No ductal dilation. PANCREAS: Unremarkable. SPLEEN: Unremarkable. ADRENAL GLANDS: Unremarkable. KIDNEYS, URETERS, AND BLADDER: Symmetric bilateral delayed nephrogram. No hydronephrosis or nephrolit hiasis. No ureteral or bladder calculi. STOMACH AND BOWEL: Small gastroesophageal hiatal hernia. Enteric contrast is visualized within the st omach and proximal small bowel becoming diluted distally. There are numerous loops of mildly dilated fluid-filled small bowel distally without focal transition. The ascending, transverse, and de scending colon demonstrate diluted contrast and mild air distention. At the proximal sigmoid colon there is a focal 3.2 cm stool ball with hyperenhancing circumferential bowel wall thickening, which d emonstrates pneumatosis (axial series 301 image 56?59). Immediately distal to this stool ball the sigmoid colon is edematous and featureless without visualization of the lumen. There is associated di verticulosis within the segment of sigmoid colon, but there is no evidence of enhancing mucosa. APPENDIX: No CT evidence for appendicitis. PERITONEUM: No free fluid. No free air. LYMPH NODES: No lymphadenopathy. REPRODUCTIVE: Unremarkable as visualized. VASCULATURE: Esophageal varices. Moderate peripheral arterial disease without central luminal filling defect in the major mesenteric vasculature. BONES: Compression fracture deformity of T11 and T12 of unknown chronicity. ABDOMINAL WALL AND SOFT TISSUES: Unremarkable. MISCELLANEOUS: Surgical clips near the gastrohepatic ligament. IMPRESSION: 1. Focal segment of featureless and hypoenhancing sigmoid colon without significant adjacent fat stra nding is suggestive of ischemic colitis with partial obstruction detailed above. Differential includes focal diverticulitis with obstructive physiology. Recommend surgery consultation if not alr aaron obtained. 2. Esophageal varices are noted. [place] for liver disease and associated portal hypertension. 3. Symmetric bilateral delayed nephrograms are suggestive of acute or chronic renal failure. 4. Compression fracture deformity of T11 and T12 of unknown chronicity. ELECTRONICALLY SIGNED BY: Robel Alcazar DO Sep 17, 2019 1:26:40 AM [facility] This report is intended for review by the ordering physician only, in accordance of law. If you recei ve this report in error, please call [facility] at [phone]. FINAL REPORT CT ABDOMEN AND PELVIS WITH IV CONTRAST: PROVIDED CLINICAL HISTORY: None. COMPARISON: 09/12/2019 FINDINGS/IMPRESSION: Colonic findings appear similar to the prior examination. Pneumatosis described in the preliminary re port could also represent gas trapped between the stool ball and the bowel wall. Agree with the preliminary interpretation given by [facility]. CODE QA Transcribed Date/Time: 09/17/2019 8:55 AM
[2019-09-17 08:20] LABS: Anion Gap 12 mmol/L (10-20); BUN (Urea Nitrogen) 7 mg/dL (9.8-20.1); Calc. Creatinine Clearance 26 mL/min (70-130); Carbon Dioxide 10 mmol/L (23-31); Chloride 119 mmol/L (98-107); Estimated GFR-MDRD 45; Glucose 91 mg/dL (83-110); Potassium 3.1 mmol/L (3.5-5.1); Sodium 138 mmol/L (136-145)
[2019-09-17] MEDS: Famotidine/PF 20 mg/2ml Vial SLOW IVP SCH (08:21)
[2019-09-17] MEDS ORDERED: Magnesium 2 GM/50 ML 2 GM in Premix Bag 1 BAG IVPB SCH (09:15)
[2019-09-17] MEDS: Sodium Bicarbonate Tab 325 MG TAB PO SCH ×3 (10:07→20:55)
[2019-09-17] MEDS: Mycophenolate 250 MG CAP PO SCH ×2 (10:50→23:34)
[2019-09-17] MEDS: Nystatin 500,000 UNITS/5 ML UDCUP SSW SCH ×3 (11:23→21:32)
--- NOTE | 2019-09-17 13:02 | PRG ---
DATE OF SERVICE: 09/16/2019 SUBJECTIVE: Ms. Diamond is still not eating much, doing little bit of liquids, still some nausea she states. She still has some suprapubic pain. OBJECTIVE: VITAL SIGNS: Temperature is 98.2, pulse 73, and blood pressure 120/74. GENERAL: She is frail and thin. LUNGS: Clear. HEART: Regular rate and rhythm. ABDOMEN: Tender in the lower abdomen with voluntary guarding, but no rebound. There is no distention. Bowel sounds are present, but quiet. LABORATORY DATA: White count 7.8, down from 20,000 on 09/12; hemoglobin is 8.9 down from 13 at the same time; platelet count 316; bands 15%; segs 70%. Sodium 142; potassium 2.8; chloride 127; bicarb 11; anion gap 7; BUN and creatinine 11 and 1.43 yesterday, 1.3 today; and glucose 99. Liver function tests were normal except for alkaline phosphatase of 205, albumin 3, protein 5.4. Phosphorus was less than today. ASSESSMENT: 1. Diverticulitis. This is recurrent admission for diverticulitis. Her initial films showed sigmoid diverticulitis on 09/04/2019. On her return CT on 09/12, there is new mural thickening in the left colon at the splenic flexure region and also previously in the sigmoid colon. This is a complicated course in a patient, who is status post liver transplant on multiple immunosuppressants. Clinically, her vital signs are stable and her white count has come down from 20 to 7.8, however, she is not eating and she had issues with electrolyte and renal function. 2. Hypophosphatemia, replaced, less than today. Potassium 3.2, being replaced. Magnesium probably was checked on the , it was normal. Some of this may be related to her immunosuppressants. 3. Liver transplant. She is on cyclosporine and CellCept. Prior history of colectomy prior history of hepatitis C treated. RECOMMENDATIONS: Monitor potassium, phosphorus, and magnesium daily. If she is going to be remained in the hospital, she should be transferred back to her liver transplant center as we do not have adequate ways to monitor her immunosuppressant levels in real time at this hospital manage the liver transplant immunosuppression. With her immunosuppression transplant status, she is at high risk for complications. I agree with getting an ID consult. Nephrology involved, but again if there is not a significant improvement in the next 24 hours, I recommend she will be transferred back to her Transplant Center at [facility]. I am sure they would prefer her to be managed there if she is going to have prolonged illness. At this time, she does not appear to be eating much other than her white blood cell count . Job ID: [id number]
[2019-09-17] MEDS: traMADol HCl 50 MG TAB PO PRN (14:36)
[2019-09-17 17:17] LABS: Potassium 3.5 mmol/L (3.5-5.1)
--- NOTE | 2019-09-17 18:23 | PDOC.HOSPP ---
- Subjective Encounter Date: 09/17/19 Encounter Time: 18:20 Subjective: f/u for acute diverticulitis/colitis on Meropenem and generally feeling better. Oral intake increased today. Having trouble taking KCL supplements. - Objective Vital Signs & Weight: Vital Signs (12 hours) Temp Pulse Resp BP Pulse Ox 09/17/19 11:33 97.6 F 84 16 134/81 97 09/17/19 08:00 98.2 F 73 16 126/74 99 Weight Admit Weight 85 lb 7 oz Weight 85 lb 7 oz I&O: 09/16/19 09/17/19 09/18/19 06:59 06:59 06:59 Output Total 800 Balance -800 Result Diagrams: 09/17/19 05:57 09/17/19 17:03 Additional Labs: Microbiology 09/12/19 18:13 Venous blood - Left Hand Blood Culture - Preliminary Specimen has been received and culture in progress. No Growth to date. 09/12/19 18:13 Venous blood - Left Hand Blood Culture - Preliminary Specimen has been received and culture in progress. No Growth to date. 09/12/19 18:13 Venous blood - Left Hand Blood Culture - Preliminary Gram Positive Cocci 09/12/19 18:13 Venous blood - Left Hand Blood Culture - Preliminary Gram Positive Cocci 09/05/19 00:45 Venous blood - Left Hand Blood Culture - Preliminary Specimen has been received and culture in progress. No Growth to date. 09/05/19 00:40 Venous blood - Right Hand Blood Culture - Preliminary Specimen has been received and culture in progress. No Growth to date. Laboratory Tests 09/04/19 09/04/19 09/04/19 22:43 22:43 22:43 WBC 12.9 H Hgb 11.1 L Plt Count Neutrophils % (Manual) Band Neuts % (Manual) Sodium Potassium 2.4 L* Carbon Dioxide Creatinine 2.34 H Phosphorus 1.9 L Alkaline Phosphatase Prealbumin 09/05/19 09/05/19 09/06/19 16:08 16:08 04:24 WBC 12.7 H Hgb 10.4 L Plt Count Neutrophils % (Manual) Band Neuts % (Manual) Sodium Potassium 3.0 L 2.4 L* Carbon Dioxide Creatinine 2.09 H 1.84 H Phosphorus Alkaline Phosphatase Prealbumin 09/06/19 09/12/19 09/12/19 16:06 18:16 18:16 WBC 20.0 H Hgb 13.5 Plt Count 465 H Neutrophils % (Manual) 85 H Band Neuts % (Manual) 10 Sodium 135 L Potassium 3.4 L Carbon Dioxide Less than 8 L* Creatinine 1.86 H 2.04 H Phosphorus Alkaline Phosphatase 303 H Prealbumin 09/13/19 09/13/19 09/14/19 05:00 05:00 04:55 WBC 21.2 H Hgb 11.4 L Plt Count 487 H Neutrophils % (Manual) 91 H 84 H Band Neuts % (Manual) 5 Sodium Potassium 4.1 Carbon Dioxide Less than 8 L* Creatinine 1.71 H Phosphorus Alkaline Phosphatase 234 H Prealbumin 09/16/19 09/17/19 09/17/19 05:26 01:14 05:57 WBC Hgb Plt Count Neutrophils % (Manual) Band Neuts % (Manual) Sodium Potassium 4.6 3.4 L Carbon Dioxide 9 L* Less than 8 L* 12 L Creatinine 1.32 H 1.28 H 1.20 H Phosphorus Alkaline Phosphatase Prealbumin 09/17/19 09/17/19 07:56 09:30 WBC Hgb Plt Count Neutrophils % (Manual) Band Neuts % (Manual) Sodium Potassium 3.1 L Carbon Dioxide 10 L Creatinine Phosphorus Alkaline Phosphatase Prealbumin 13.0 L Hospitalist ROS - Medication Medications: Active Medications Generic Name Dose Route Start Last Admin Trade Name Freq PRN Reason Stop Dose Admin Aspirin 81 mg 09/13/19 09:00 09/17/19 07:43 Ecotrin PO Not Given DAILY HENRY Cyclosporine 50 mg 09/13/19 09:00 09/17/19 10:06 Neoral PO 50 mg BID HENRY Administration Famotidine 20 mg 09/13/19 09:00 09/17/19 08:21 Pepcid SLOW IVP 20 mg DAILY HENRY Administration Meropenem 1 gm/ Device 50 mls @ 100 mls/hr 09/12/19 23:59 09/17/19 14:44 IVPB 50 mls 0800,1600,2359 HENRY Administration Ondansetron HCl 8 mg/ Sodium 54 mls @ 216 mls/hr 09/13/19 22:00 09/17/19 12: 19 Chloride IVPB Not Given Q8HR HENRY Potassium Chloride/Dextrose/Sod Cl 1,000 mls @ 100 mls/hr 09/14/19 11:30 16:20 D5 Ns W/ 40 Meq Kcl IV Not Given .Q10H HENRY Sodium Bicarbonate 150 meq/ 1,150 mls @ 75 mls/hr 09/17/19 02:00 09/17/19 14: 44 Dextrose/Water IV 1,150 mls .[id number] HENRY Administration Potassium Chloride 20 meq/ 100 mls @ 50 mls/hr 09/17/19 12:30 09/17/19 13:26 Device IVPB 09/17/19 18:29 100 mls Q2H HENRY Administration Magnesium Oxide 500 mg 09/13/19 09:00 09/17/19 07:43 Magnesium Oxide PO Not Given DAILY [facility] Morphine Sulfate 2 mg 09/13/19 18:00 09/16/19 08:32 Morphine SLOW IVP 2 mg Q4H PRN Administration Moderate to Severe Pain (6-10) Multivitamins 1 tab 09/13/19 09:00 09/17/19 07:43 Theragran PO Not Given DAILY [facility] Mycophenolate Mofetil 500 mg 09/13/19 09:00 09/17/19 10:50 Cellcept PO 500 mg BID [facility] Administration Nystatin 500,000 units 09/17/19 09:00 09/17/19 11:35 Mycostatin SSW 500,000 units QID HENRY Administration Ondansetron HCl 4 mg 09/12/19 23:26 09/13/19 03:31 Zofran Odt PO 4 mg Q6H PRN Administration Nausea/Vomiting Potassium Chloride 40 meq 09/17/19 15:00 09/17/19 13:17 Klor-Con PO 40 meq TID [facility] Administration Sodium Bicarbonate 650 mg 09/16/19 21:00 09/17/19 13:21 Bicarbonate, Sodium PO Not Given TID [facility] Tenofovir Disoproxil Fumarate 300 mg 09/13/19 09:00 09/17/19 10:07 Viread PO 300 mg DAILY HENRY Administration Tramadol HCl 50 mg 09/16/19 11:54 09/17/19 14:36 Ultram PO 50 mg TIDPRN PRN Administration Pain - Exam General Appearance: NAD, awake alert Eye: PERRL, anicteric sclera ENT: normocephalic atraumatic, no oropharyngeal lesions Neck: supple, symmetric, no JVD, no thyromegaly Heart: RRR, no murmur, no gallops, no rubs, normal peripheral pulses Respiratory: CTAB, no wheezes, no rales, no ronchi Gastrointestinal: soft, non-tender, non-distended, normal bowel sounds, no palpable masses Extremities: no cyanosis, no clubbing, no edema Skin: normal turgor, no lesions Neurological: cranial nerve grossly intact, no new deficit Musculoskeletal: normal tone, generalized weakness, diffuse muscle atrophy Psychiatric: A&O x 3 Hosp A/P (1) Acute diverticulitis Code(s): K57.92 - DVTRCLI OF INTEST, PART UNSP, W/O PERF OR ABSCESS W/O BLEED Status: Acute Plan: Slow improvement overall, continue Meropenem IV another 24h then d/c, IVF's, slow advancement of po intake (2) EDGAR (acute kidney injury) Code(s): N17.9 - ACUTE KIDNEY FAILURE, UNSPECIFIED Status: Acute Plan: Improved, continue IVF's, avoid nephrotoxic meds and limit contrast exposure (3) Nausea & vomiting Code(s): R11.2 - NAUSEA WITH VOMITING, UNSPECIFIED Status: Acute Plan: Resolved, PRN Zofran (4) CKD (chronic kidney disease), stage IV Code(s): N18.4 - CHRONIC KIDNEY DISEASE, STAGE 4 (SEVERE) Status: Chronic (5) Protein-calorie malnutrition, moderate Code(s): E44.0 - MODERATE PROTEIN-CALORIE MALNUTRITION Status: Chronic Plan: Continue Ensure Enlive, Ema Coello (6) Hypokalemia Code(s): E87.6 - HYPOKALEMIA Status: Acute Plan: Improved, continue KCL supplementation, serial K+ monitoring - Plan continue antibiotics, PT/OT, 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
--- NOTE | 2019-09-17 20:51 | CON ---
DATE OF CONSULTATION: 09/17/2019 REQUESTING PHYSICIAN: Richard Bennett MD HISTORY OF PRESENT ILLNESS: Ms. Diamond is a 74-year-old woman, who was admitted on 09/12/2019 with complaint of worsening abdominal pain associated with nausea and vomiting for approximately 72 hours prior to admission. She was previously admitted to the hospital from 09/05/2019 through 09/08/2019 with acute diverticulitis, complicated by acute kidney injury with a high creatinine of 2.42 on 09/04/2019, which had improved to 1.41 upon discharge on 09/08/2019. She denies any bowel movement since this admission. She does not recall the last time she passed flatus. She does; however, report minimum abdominal pain at the time of my evaluation. This is in logan contrast to severe abdominal pain upon admission. She has remained hemodynamically stable and afebrile since this admission. Currently, she is tolerating full liquid diet. CT scan of the abdomen and pelvis, which was obtained on 09/12/2019 revealed mural thickening of the left colon with extensive diverticulosis coli. No pneumoperitoneum was noted. There is extensive amount of vascular calcifications of the aorta. Repeat CT scan of the abdomen and pelvis obtained yesterday confirmed stable mural thickening of the left colon. Again, no significant pneumatosis intestinalis is evident. There remains no pneumoperitoneum present. The CT scan report raises suspicion for small focus of pneumatosis intestinalis. CBC on admission 09/12/2019, remarkable for 20,000 white blood cells, hemoglobin and hematocrit 13.5 and 42.0 respectively, and platelet count 465,000. Differential counts included 85% segmented neutrophils, 10 bands, and 4 lymphocytes. Metabolic profile upon admission included sodium 135, potassium 4.3, chloride 114, bicarb less than 8, BUN 21, creatinine is 2.04, and glucose 90. These laboratory studies contrast to today's CBC with 7000 white blood cells, hemoglobin and hematocrit 9.1 and 27.7 respectively, and platelet count 296,000. Metabolic profile today includes sodium 138, potassium 3.1, chloride is 119, bicarb 10, BUN is 7, creatinine is 1.18, glucose 91, albumin 2.9, and prealbumin 13.0. PAST MEDICAL HISTORY: Pertinent for chronic hepatitis C, diverticulosis coli with recent bout of acute diverticulitis, stage 3 chronic kidney disease, essential hypertension, previous colon cancer status post partial colectomy, chronic malnutrition, and gastroesophageal reflux disease. PAST SURGICAL HISTORY: Pertinent for partial colectomy. I suspect that this was likely right-sided colectomy given the absence of the appendix with no previous surgical history of appendectomy. Other pertinent surgical history includes liver transplant as well as colonoscopy with polypectomy. SOCIAL HISTORY: She has an over 30 pack year cigarette smoking history and used to drink heavily. She quit smoking and drinking in 2003. She is , lives at home with her . FAMILY HISTORY: Noncontributory for this patient's age. ALLERGIES: THE PATIENT DENIES ANY KNOWN DRUG ALLERGIES. REVIEW OF SYSTEMS: Ten-point review of systems essentially unremarkable except as stated in past medical history and chief complaint. PHYSICAL EXAMINATION: GENERAL: This reveals a 74-year-old thin-appearing woman, who is otherwise coherent, interactive, and appears stated age. The patient is alert and oriented x3, appears to be in no acute distress at the time of my evaluation. VITAL SIGNS: Today includes blood pressure 126/74, pulse is 73, respiratory rate is 16, temperature 98.2 degrees Fahrenheit, and oxygen saturation is 99% on room air. HEENT: Pupils are equal, round, and reactive to light and accommodation. NECK: She has no jugular venous distention noted. HEART: Reveals regular rate and rhythm. No murmurs or gallops auscultated. LUNGS: Clear to auscultation bilaterally. Her breathing is regular and unlabored. ABDOMEN: Soft and nondistended with mild nonfocal tenderness to palpation. She clearly has no peritoneal signs on examination. Bowel sounds are present in all 4 quadrants. NEUROLOGIC: Reveals no focal deficits present. DIAGNOSTIC DATA: I personally reviewed the CT scan of the abdomen and pelvis from 09/12/2019 and 09/16/2019 and finding extensive diverticulosis coli. Significant vascular disease involving the aorta and mesenteric arteries. Additionally, there is thickening of the colonic wall from the mid transverse through the splenic flexure as well as descending and sigmoid colon. There is a diverticulosis coli mostly involving the sigmoid colon. There is no pneumoperitoneum present. There is a significant fecal stasis present. IMPRESSION: 1. Resolving acute sigmoid colon diverticulitis. 2. Resolving acute kidney injury. 3. Acute hypokalemia. 4. Protein calorie malnutrition. 5. Possible ischemic colitis. Given the extensive amount of calcifications of the mesenteric vasculature and the abdominal aorta. The patient's current physiology including now resolved acute kidney injury, resolved leukocytosis, nearly resolved abdominal pain, all make bowel necrosis less likely to be present in this setting. RECOMMENDATIONS: 1. Continue with conservative management including antibiotic therapy for acute diverticulitis, initiate stool softeners to promote bowel movements in the face of apparent constipation and fecal stasis, nutritional supplementation to address this patient's protein calorie malnutrition. 2. There is no acute surgical indication for this patient at this time. 3. General Surgery will follow along and make further recommendations as necessary. 4. I have informed the patient that should surgical undertaken be warranted, she is more likely to have completion of total colectomy with permanent ileostomy, given she has had a previous partial colectomy and now have extensive amount of diverticular disease involving almost the entire left colon. 5. The patient indicates understanding information provided her today. 6. I have answered her questions. Thank you again, Dr. Bennett, for allowing me the opportunity to participate in the care of this patient. Job ID: [id number]
[2019-09-17] MEDS: Polyethylene Glycol 3350 17 GM Packet PO SCH (20:56)
--- NOTE | 2019-09-17 22:04 | CON ---
DATE OF CONSULTATION: 09/17/2019 REASON FOR CONSULTATION: Bacteremia. HISTORY OF PRESENT ILLNESS: A 74-year-old with history of chronic hep C and chronic hep B with liver transplant following diagnosis of liver cancer; colon cancer, treated and in remission, who was recently admitted with diverticulitis from September 05 through September 08, discharged on Cipro and Flagyl, with development of nausea in the outpatient setting, worsening abdominal pain, which led to readmission. Repeat evaluation showed neutrophilia with a left shift and a CT abdomen and pelvis, which showed colitis, mural thickening, possible ischemic colitis, and possible impacted stool. She was started on broad-spectrum coverage and 2 sets of blood cultures returned positive. We were asked to evaluate that finding. Currently, Ms. Diamond is lying in bed. She is drinking clear fluids. She has had one bowel movement, which was semi-formed, and she feels quite improved with much less pain. No vomiting, able to void without difficulty. No headaches. No visual symptoms, sore throat, odynophagia, dysphagia, dyspnea, or cough. No back pain. No chest pain. No bleeding. MEDICAL HISTORY: 1. Chronic hep C and chronic hep B, liver cirrhosis and liver transplant, on immunosuppressive therapy and tenofovir for suppression of hepatitis B infection after cure of hepatitis C. 2. Colon cancer in remission, renal insufficiency, and GERD. 3. Esophageal varices status post banding in the past. SURGICAL HISTORY: Partial colectomy for management of colon cancer and liver transplant. ALLERGIES: NONE. SOCIAL HISTORY: . Former smoker. No reported illicit drug use or alcoholic beverage use. FAMILY HISTORY: Type 2 diabetes. CURRENT MEDICATIONS: 1. P.r.n. medications. 2. Proventil. 3. Pepcid. 4. Apresoline. 5. Lactulose. 6. Meropenem. 7. Mycophenolate. 8. Ondansetron. 9. MiraLAX. 10. The patient is also on tenofovir. PHYSICAL EXAMINATION: VITAL SIGNS: Temperature has been normal throughout the hospital stay. BP 130/80, pulse 84, respirations 16, O2 saturation 97%. SKIN: Shallow small ulcer in the right side of the presacral region without inflammatory changes noted. She has a peripheral IV access and is voiding in the diaper. No lymphadenopathy. HEENT: Ocular movements conjugate. Oral cavity with question of oral thrush. NECK: Supple. No jugular vein distention. LUNGS: Symmetric air entry. No crackles or wheezing. ABDOMEN: Soft. Mild tenderness in the lower segments of the abdomen. No bladder distention. EXTREMITIES: No joint inflammatory activity. Moves extremities equally. Pulses 1+ in dorsalis pedis. Plantar responses are flexor. NEUROLOGIC: No focal neurological findings. Cognitive function appears to be normal. LABORATORY DATA: White cell count has shown a decrease in WBC from 20,000 to 7,000. Hemoglobin is down to 9.1, platelets 296, 73% neutrophils. Sodium 138, creatinine 1.18, which is improved from admission. Liver profile was normal except for alkaline phosphatase of 191, albumin was 2.9. Microbiology with micrococcus from admission, two sets, one set with 2 different strains of micrococcus and there is a JANAE preparation from the oropharyngeal area with positive for yeast. ASSESSMENT: 1. Liver cirrhosis secondary to hepatitis C with liver transplant, chronic hepatitis B identified by chronic anti-hepatitis B core antibody. On chronic suppressive tenofovir. 2. Diverticulitis versus ischemic colitis or stercoral colitis, which she failed outpatient oral treatment and was readmitted, now has displayed marked improvement. 3. Bacteremia, most likely due to contamination of the sample. The samples were drawn as logged by the lab at the same time and in the emergency room, so usually those represent contamination, particularly in view of the types of organisms isolated, so I would not recommend treating this finding. The patient now has failed all outpatient antimicrobial therapy and will need to continue IV therapy with the current regimen or could be switched to Invanz in the outpatient setting for administration once daily. The total duration of therapy ranges from 7 to 10 days. It can be longer sometimes, depending on clinical response. The endpoint can also be targeted by following the procalcitonin levels or C-reactive protein. Job ID: [id number]
[2019-09-18] MEDS: MEROPENEM 1 GM/50 ML 1 GM in Premix Bag 1 BAG IVPB SCH ×4 (00:35→23:17)
[2019-09-18] MEDS: Sodium Bicarbonate 150 MEQ in Dextrose 5% in Water 1,000 ML IV SCH ×3 (01:02→20:31)
--- NOTE | 2019-09-18 01:35 | PRG ---
DATE OF SERVICE: 09/17/2019 SUBJECTIVE: The patient was seen this evening, sitting up in bed with no signs of acute distress. She reported her pain was well controlled and she is feeling better each day. She is tolerating a full liquid diet. She is not moving around very much, does not get up out of the bed to go to the restroom. OBJECTIVE: VITAL SIGNS: Temperature 98.3, pulse 75, respirations 18, oxygen saturation 98% on room air, and blood pressure 116/72. GENERAL: An elderly ill-appearing female lying in bed with no signs of acute distress. PULMONARY: Equal chest rise and fall. No signs of acute respiratory distress. ASSESSMENT: 1. Resolving acute sigmoid colon diverticulitis. 2. Resolving acute kidney injury. 3. Acute hypokalemia. 4. Protein calorie malnutrition. 5. Possible ischemic colitis. PLAN: Continue conservative management. There is no indication for surgery at this time. We will continue to follow along. Continue current diet and pain regimen. The patient to start to ambulate and sit up in a chair more tomorrow. Job ID: [id number]
[2019-09-18] MEDS: D5 NS w/ 40 mEq KCl 1,000 ML IV SCH (05:38)
[2019-09-18 06:10] LABS: Anion Gap 10 mmol/L (10-20); BUN (Urea Nitrogen) 6 mg/dL (9.8-20.1); Calc. Creatinine Clearance 26 mL/min (70-130); Calcium 7.9 mg/dL (7.8-10.44); Carbon Dioxide 17 mmol/L (23-31); Chloride 115 mmol/L (98-107); Estimated GFR-MDRD 44; Glucose 90 mg/dL (83-110); Sodium 139 mmol/L (136-145)
[2019-09-18] MEDS: Ondansetron HCl/PF 8 MG in Sodium Chloride 0.9% 50 ML IVPB SCH ×3 (06:17→20:31)
[2019-09-18 06:20] LABS: Potassium 2.7 mmol/L (3.5-5.1)
[2019-09-18] MEDS: Mycophenolate 250 MG CAP PO SCH ×2 (08:11→20:29)
[2019-09-18] MEDS: Aspirin 81 mg Enteric Coated Tablet PO SCH (08:11)
[2019-09-18] MEDS: Magnesium Oxide 250 MG TAB PO SCH (08:12)
[2019-09-18] MEDS: Multivit, Therapeutic 1 TAB PO SCH (08:12)
[2019-09-18] MEDS: Sodium Bicarbonate Tab 325 MG TAB PO SCH ×3 (08:12→20:29)
[2019-09-18] MEDS: Nystatin 500,000 UNITS/5 ML UDCUP SSW SCH ×4 (08:13→20:30)
[2019-09-18] MEDS: cycloSPORINE, Modified 25 MG CAP PO SCH ×2 (08:13→20:29)
[2019-09-18] MEDS: Polyethylene Glycol 3350 17 GM Packet PO SCH ×2 (08:13→20:30)
[2019-09-18] MEDS: Famotidine/PF 20 mg/2ml Vial SLOW IVP SCH (08:13)
--- NOTE | 2019-09-18 09:11 | PRG ---
DATE OF SERVICE: 09/17/2019 SUBJECTIVE: Ms. Diamond denies any abdominal pain. She had bowel movements yesterday after her CAT scan. She is still not eating much. MEDICATIONS: 1. Tylenol. 2. Proventil. 3. Ecotrin. 4. Tums. 5. Neoral 50 mg b.i.d. 6. Pepcid 20 mg. 7. Apresoline. 8. Magnesium oxide. 9. Meropenem. 10. Morphine. 11. Multivitamin. 12. CellCept 500 b.i.d. 13. Mycostatin. 14. Zoloft. 15. Zofran. 16. Potassium chloride. 17. D5 normal saline with 40 of potassium. 18. Phenergan p.r.n. 19. Sodium bicarb 650 p.o. t.i.d. 20. Sodium bicarb 150. 21. Dextrose 75 an hour. 22. Viread. 23. Ultram. OBJECTIVE: VITAL SIGNS: Temperature is 98.2, pulse 73, and blood pressure 126/74. GENERAL: She is cachectic and thin. She has muscle wasting. Oropharynx, no lesions. NECK: Supple without adenopathy. LUNGS: Clear. HEART: Regular rate and rhythm without clicks, rubs, or murmurs. ABDOMEN: Soft and nontender. There is no rebound. There is no guarding. Bowel sounds are present. There is no hepatosplenomegaly. There is no shifting dullness or fluid wave. EXTREMITIES: There is no clubbing, cyanosis, or edema. She has no asterixis. LABORATORY DATA: Sodium 138; potassium 3.1, it was 3.4 at 5:00 this morning; bicarb was up to 12 early this morning, it is 10 now; anion gap is 12; BUN is 7; and creatinine is 1.18. Phosphorus was 1.7, it has been replaced. Calcium 8.2, magnesium 1.6. AST and ALT are 15 and 7, alkaline phosphatase is 191, prealbumin is 13, albumin is 2.9. Protein 5.3. Beta-hydroxybutyrate was 0.23. Lactic acid was 0.6 on the and her bicarb was 9. IMAGING DATA: CAT scan was performed yesterday to evaluate for possible mesenteric ischemia, although she had no symptoms of that and she has anion gap acidosis. This again shows featureless and hyperenhancing segment of sigmoid colon without adjacent fat stranding. The radiologist now thinks that is more of ischemic colitis with stercoral impaction there. She had signs more of diverticulitis previously. The thickening in the splenic flexure was seen on her initial admission H and P, it is not seen on that study. ASSESSMENT: This is hospital day 6. This admission, she was here for 3 days prior to that for what was felt to be diverticulitis. She may have a component of ischemic colitis in the splenic flexure region. She showed no signs of sepsis or ischemic colitis with classic bleeding. She has responded to antibiotics with a drop in her white count from 20,000 on the to 7 today. We are seeing significant electrolyte abnormalities, however, with hypokalemia, hypophosphatemia, hypomagnesemia, and non-anion gap acidosis. Some of this may be related to malnutrition, some of it may be related to her IV fluids and some of it may be related to her immunosuppressants. RECOMMENDATIONS: 1. Agree with involving Nephrology in her care. 2. When I consult with her Hepatology Transplant Service in [place], I think it may be benefit to transfer her there as we do not have to wait and monitor her drug levels. Definitely, we can get potassium wasting and some metabolic abnormalities from the CellCept and the Neoral. Also, we will review her CAT scan with the radiologist. I have made a request already for transfer through the transfer center. I discussed the case with Dr. Shukla and Dr. Caldwell of Nephrology. Job ID: [id number]
--- NOTE | 2019-09-18 09:21 | PDOC.HOSPP ---
- Subjective Encounter Date: 09/18/19 Encounter Time: 09:10 Subjective: f/u for acute diverticulitis/colitis on current Meropenem. Improving overall and no abd pain. Tolerating soft diet. - Objective Vital Signs & Weight: Vital Signs (12 hours) Temp Pulse Resp BP Pulse Ox 09/18/19 07:21 97.8 F 73 17 133/65 98 09/18/19 05:00 16 09/18/19 01:00 14 Weight Admit Weight 85 lb 7 oz Weight 85 lb 7 oz I&O: 09/17/19 09/18/19 09/19/19 06:59 06:59 06:59 Output Total 800 Balance -800 Result Diagrams: 09/17/19 05:57 09/18/19 05:30 Additional Labs: Microbiology 09/12/19 18:13 Venous blood - Left Hand Blood Culture - Preliminary Specimen has been received and culture in progress. No Growth to date. 09/12/19 18:13 Venous blood - Left Hand Blood Culture - Preliminary Specimen has been received and culture in progress. No Growth to date. 09/12/19 18:13 Venous blood - Left Hand Blood Culture - Preliminary Gram Positive Cocci 09/12/19 18:13 Venous blood - Left Hand Blood Culture - Preliminary Gram Positive Cocci 09/05/19 00:45 Venous blood - Left Hand Blood Culture - Preliminary Specimen has been received and culture in progress. No Growth to date. 09/05/19 00:40 Venous blood - Right Hand Blood Culture - Preliminary Specimen has been received and culture in progress. No Growth to date. Laboratory Tests 09/04/19 09/04/19 09/04/19 22:43 22:43 22:43 WBC 12.9 H Hgb 11.1 L Plt Count Neutrophils % (Manual) Band Neuts % (Manual) Sodium Potassium 2.4 L* Carbon Dioxide Creatinine 2.34 H Phosphorus 1.9 L Alkaline Phosphatase Prealbumin 09/05/19 09/05/19 09/06/19 16:08 16:08 04:24 WBC 12.7 H Hgb 10.4 L Plt Count Neutrophils % (Manual) Band Neuts % (Manual) Sodium Potassium 3.0 L 2.4 L* Carbon Dioxide Creatinine 2.09 H 1.84 H Phosphorus Alkaline Phosphatase Prealbumin 09/06/19 09/12/19 09/12/19 16:06 18:16 18:16 WBC 20.0 H Hgb 13.5 Plt Count 465 H Neutrophils % (Manual) 85 H Band Neuts % (Manual) 10 Sodium 135 L Potassium 3.4 L Carbon Dioxide Less than 8 L* Creatinine 1.86 H 2.04 H Phosphorus Alkaline Phosphatase 303 H Prealbumin 09/13/19 09/13/19 09/14/19 05:00 05:00 04:55 WBC 21.2 H Hgb 11.4 L Plt Count 487 H Neutrophils % (Manual) 91 H 84 H Band Neuts % (Manual) 5 Sodium Potassium 4.1 Carbon Dioxide Less than 8 L* Creatinine 1.71 H Phosphorus Alkaline Phosphatase 234 H Prealbumin 09/16/19 09/17/19 09/17/19 05:26 01:14 05:57 WBC Hgb Plt Count Neutrophils % (Manual) Band Neuts % (Manual) Sodium Potassium 4.6 3.4 L Carbon Dioxide 9 L* Less than 8 L* 12 L Creatinine 1.32 H 1.28 H 1.20 H Phosphorus Alkaline Phosphatase Prealbumin 09/17/19 09/17/19 07:56 09:30 WBC Hgb Plt Count Neutrophils % (Manual) Band Neuts % (Manual) Sodium Potassium 3.1 L Carbon Dioxide 10 L Creatinine Phosphorus Alkaline Phosphatase Prealbumin 13.0 L Hospitalist ROS - Medication Medications: Active Medications Generic Name Dose Route Start Last Admin Trade Name Freq PRN Reason Stop Dose Admin Aspirin 81 mg 09/13/19 09:00 09/18/19 08:11 Ecotrin PO 81 mg DAILY HENRY Administration Cyclosporine 50 mg 09/13/19 09:00 09/18/19 08:13 Neoral PO 50 mg BID HENRY Administration Famotidine 20 mg 09/13/19 09:00 09/18/19 08:13 Pepcid SLOW IVP 20 mg DAILY HENRY Administration Meropenem 1 gm/ Device 50 mls @ 100 mls/hr 09/12/19 23:59 09/18/19 08:08 IVPB 50 mls 0800,1600,2359 HENRY Administration Ondansetron HCl 8 mg/ Sodium 54 mls @ 216 mls/hr 09/13/19 22:00 09/18/19 06: 17 Chloride IVPB Not Given Q8HR [facility] Sodium Bicarbonate 150 meq/ 1,150 mls @ 75 mls/hr 09/17/19 02:00 09/18/19 01: 02 Dextrose/Water IV 1,150 mls .[id number] HENRY Administration Lactulose 30 gm 09/18/19 09:00 09/18/19 08:11 Lactulose PO 30 gm DAILY HENRY Administration Magnesium Oxide 500 mg 09/13/19 09:00 09/18/19 08:12 Magnesium Oxide PO 500 mg DAILY HENRY Administration Morphine Sulfate 2 mg 09/13/19 18:00 09/16/19 08:32 Morphine SLOW IVP 2 mg Q4H PRN Administration Moderate to Severe Pain (6-10) Multivitamins 1 tab 09/13/19 09:00 09/18/19 08:12 Theragran PO 1 tab DAILY HENRY Administration Mycophenolate Mofetil 500 mg 09/13/19 09:00 09/18/19 08:11 Cellcept PO 500 mg BID HENRY Administration Nystatin 500,000 units 09/17/19 09:00 09/18/19 08:13 Mycostatin SSW 500,000 units QID HENRY Administration Ondansetron HCl 4 mg 09/12/19 23:26 09/13/19 03:31 Zofran Odt PO 4 mg Q6H PRN Administration Nausea/Vomiting Polyethylene Glycol 17 gm 09/17/19 21:00 09/18/19 08:13 Miralax PO 17 gm BID HENRY Administration Potassium Chloride 40 meq 09/17/19 15:00 09/18/19 08:10 Klor-Con PO 40 meq TID HENRY Administration Sodium Bicarbonate 650 mg 09/16/19 21:00 09/18/19 08:12 Bicarbonate, Sodium PO 650 mg TID HENRY Administration Tenofovir Disoproxil Fumarate 300 mg 09/13/19 09:00 09/18/19 08:11 Viread PO 300 mg DAILY HENRY Administration Tramadol HCl 50 mg 09/16/19 11:54 09/17/19 14:36 Ultram PO 50 mg TIDPRN PRN Administration Pain - Exam General Appearance: NAD, ill appearing Eye: PERRL, anicteric sclera ENT: normocephalic atraumatic, no oropharyngeal lesions Neck: supple, symmetric, no JVD, no thyromegaly Heart: RRR, no murmur, no gallops, no rubs, normal peripheral pulses Respiratory: CTAB, no wheezes, no rales, no ronchi Gastrointestinal: soft, non-tender, non-distended, normal bowel sounds, no palpable masses Extremities: no cyanosis, no clubbing, no edema Skin: normal turgor, no lesions Neurological: cranial nerve grossly intact, no new deficit Musculoskeletal: normal tone, generalized weakness Psychiatric: normal affect, A&O x 3 Hosp A/P (1) Acute diverticulitis Code(s): K57.92 - DVTRCLI OF INTEST, PART UNSP, W/O PERF OR ABSCESS W/O BLEED Status: Acute Plan: Plan for outpt IV Invanz 1gm x 10 days following Procalcitonin/CRP levels to guide duration, PICC line placement today, CM for HH/Infusion options (2) EDGAR (acute kidney injury) Code(s): N17.9 - ACUTE KIDNEY FAILURE, UNSPECIFIED Status: Acute Plan: Improved, avoid nephrotoxic meds and limit contrast (3) Hypokalemia Code(s): E87.6 - HYPOKALEMIA Status: Acute Plan: Persistent, KCL supplementation, serial monitoring (4) Nausea & vomiting Code(s): R11.2 - NAUSEA WITH VOMITING, UNSPECIFIED Status: Acute Plan: Resolved (5) CKD (chronic kidney disease), stage IV Code(s): N18.4 - CHRONIC KIDNEY DISEASE, STAGE 4 (SEVERE) Status: Chronic (6) Protein-calorie malnutrition, moderate Code(s): E44.0 - MODERATE PROTEIN-CALORIE MALNUTRITION Status: Chronic Plan: Continue Mighty Shakes/Ensure, start Regular diet - Plan continue antibiotics, 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
[2019-09-18 09:52] LABS: Magnesium 1.8 mg/dL (1.6-2.6)
--- NOTE | 2019-09-18 11:52 | SPC ---
Ultrasound and Fluoroscopic guided left upper extremity double lumen PICC placement: 12/20/2018 HISTORY: Need for central vascular access. FINDINGS: Informed consent obtained prior to the procedure. Left antecubital fossa prepped and draped in normal sterile fashion. Skin overlying the brachial vein anesthetized with 1% buffered lidocaine. With direct sonographic humaira dance, vascular access is obtained via the brachial vein and an 0.018in wire was advanced to the cavoatrial junction. Intravascular length is calculated at 41 cm and of the PICC is cut accordingly. Needle is removed and replaced with a peel-away sheath. The PICC was advanced over the wire. Wire and peel-away sheath were removed. The tip of the catheter overlies the cavoatrial junction. The port flushes well and the catheter is ready for use. Exposure data: 0 minutes of fluoroscopic time 42 mGy per centimeter squared IMPRESSION: Successful ultrasound guided placement of a left upper extremity PICC.
--- NOTE | 2019-09-18 11:59 | PRG ---
DATE OF SERVICE: 09/18/2019 SUBJECTIVE: Patient was seen and examined at bedside and overnight events noted. Patient denies any shortness of breath or chest pain or palpitation. No history of nausea or vomiting or diarrhea or fever or chills or cramps. OBJECTIVE: GENERAL: This is a thin built female, in no apparent distress. VITAL SIGNS: Temperature 97.8. Heart rate 73. Respiratory rate 17. Blood pressure 133/65. HEENT: Atraumatic, normocephalic. Oral mucosa is moist. NECK: Supple. CARDIOVASCULAR: S1, S2 heard. Rate and rhythm regular. RESPIRATORY: Clear to auscultation. GASTROINTESTINAL: Abdomen is soft. MUSCULOSKELETAL: No tenderness. No edema. DERMATOLOGIC: No skin rash. NEUROLOGIC: Alert and awake and oriented x3. No focal neurologic deficits. Moving all the extremities. PSYCHIATRIC: Mood and affect normal. LABORATORY DATA: Potassium is 2.7, BUN is 6, and creatinine is 1.2. ASSESSMENT AND PLAN: 1. Acute kidney injury, stable. 2. Chronic kidney disease, stage 3, stable. 3. Hypokalemia. We will replace. We will check renin aldosterone level. 4. Acidosis. 5. Hypophosphatemia. We will replace. No losses reported. No episodes of severe diarrhea or nausea reported. Most likely hypokalemia related to the medications. We will continue on supplements and monitor. We will check renin aldosterone level. Job ID: [id number]
[2019-09-18] MEDS ORDERED: PHOS-NAK 1 PKT PACK PO SCH (12:00)
--- NOTE | 2019-09-18 12:34 | PRG ---
DATE OF SERVICE: 09/18/2019 SUBJECTIVE: Ms. Diamond' diet was advanced by Dr. Shukla last evening. I did talk with the liver transplant service at [facility] yesterday regarding the patient's course. They felt that her metabolic alkalosis was not likely related to antirejection medicines. In fact, most of them as side effects here cause hyperkalemia and not hypokalemia and felt that she probably would benefit from seeing a buyer tobacco head for possible evaluation for RTA. I did inform the Nephrology seeing the patient here as they had no floor beds available for transfer. They recommend we continue that, and if she was not improving or took a step back, we could reconsider transfer at that time. They did note that she had no issues with hypokalemia there and mild metabolic acidosis, nonanion gap, but her bicarb usually runs in the 18 there. I did review all her films with Radiology yesterday. There does not appear to be any pneumatosis. The radiologist felt probably some of her disease in the colon is probably related to stercoral ulceration with colon thickening related to that secondary to thick hard stool in the colon. Diverticulitis still be a possibility. She has had no rectal bleeding or severe pain that would be indicative of ischemic colitis. OBJECTIVE: VITAL SIGNS: Temperature is 98, pulse 73, blood pressure 133/65. GENERAL: The patient is downstairs, getting a PICC line, unable to examine her presently. LABORATORY DATA: Today; sodium 139, potassium 2.7, chloride 115, bicarb 17, BUN and creatinine are 6 and 1.2. Phosphorus 2, magnesium 1.8. C-reactive protein 1.17, prealbumin 19, and procalcitonin 0.09. ASSESSMENT: 1. Diverticulitis versus stercoral ulceration. Focal ischemia from impaction. Clinically improving. Her fevers resolved. Her white count has resolved as of yesterday. 2. Chronic issues with hypokalemia and mild metabolic acidosis, nonanion gap. We will defer management to Nephrology. Talking with her transplant doctors in [place] at [facility], this has been a trend noticed there, but not metabolic acidosis, not to the degree here. They were concerned about her being evaluated for RTA. Job ID: [id number]
--- NOTE | 2019-09-18 12:55 | PRG ---
DATE OF SERVICE: 09/18/2019 SUBJECTIVE: Ms. Diamond is a 74-year-old woman, admitted with acute diverticulitis. She has been on IV antibiotics. She reports no abdominal pain today. She denies any nausea or vomiting. She had a bowel movement this morning. She is tolerating diet. OBJECTIVE: VITAL SIGNS: This morning include blood pressure 133/65, pulse is 73, respiratory rate is 17, temperature 97.8 degrees Fahrenheit, oxygen saturation is 98% on room air. Urinary output is adequate for the patient's age and weight. HEART: Reveals regular rate and rhythm. LUNGS: Clear to auscultation bilaterally. ABDOMEN: Soft, nontender, and nondistended. NEUROLOGIC: Reveals no focal deficits present. LABORATORY DATA: Laboratory findings today include metabolic profile; sodium 139, potassium 2.7, chloride is 115, bicarb is 17, BUN 6, creatinine is 1.20, glucose is 90, phosphorus is 2.0, magnesium is 1.8. C-reactive protein is 1.17. IMPRESSION: 1. Resolving acute diverticulitis. No clinical evidence of ischemic bowel disease. 2. Acute hypokalemia. 3. Acute hypomagnesemia. 4. Acute hypophosphatemia. RECOMMENDATIONS: 1. Correct abnormal electrolytes at the discretion of the primary service. 2. There is no acute surgical indication for this patient at this time. 3. General Surgery will sign off and be available to re-evaluate the patient on demand. 4. The patient will require antibiotic therapy for the next 2 weeks. Job ID: [id number]
[2019-09-18] MEDS: PHOS-NAK 1 PKT PACK PO SCH (20:30)
[2019-09-18 21:55] LABS: Calcium 8.2 mg/dL (7.8-10.44); Chloride 115 mmol/L (98-107); Sodium 142 mmol/L (136-145)
[2019-09-18 21:56] LABS: Glucose 104 mg/dL (83-110)
[2019-09-18 21:57] LABS: Anion Gap 11 mmol/L (10-20); Carbon Dioxide 19 mmol/L (23-31)
[2019-09-18 21:59] LABS: Calc. Creatinine Clearance 26 mL/min (70-130); Estimated GFR-MDRD 46
[2019-09-18 22:00] LABS: BUN (Urea Nitrogen) 6 mg/dL (9.8-20.1)
[2019-09-18 22:01] LABS: Magnesium 1.8 mg/dL (1.6-2.6)
[2019-09-18 22:02] LABS: Phosphorus 1.5 mg/dL (2.3-4.7); Potassium 2.9 mmol/L (3.5-5.1)
[2019-09-19] MEDS: Ondansetron HCl/PF 8 MG in Sodium Chloride 0.9% 50 ML IVPB SCH ×2 (06:44→14:35)
[2019-09-19 07:17] LABS: Anion Gap 8 mmol/L (10-20); BUN (Urea Nitrogen) 5 mg/dL (9.8-20.1); Calc. Creatinine Clearance 27 mL/min (70-130); Carbon Dioxide 20 mmol/L (23-31); Chloride 116 mmol/L (98-107); Estimated GFR-MDRD 47; Glucose 89 mg/dL (83-110); Magnesium 1.7 mg/dL (1.6-2.6); Phosphorus 2.2 mg/dL (2.3-4.7); Sodium 141 mmol/L (136-145)
[2019-09-19 07:53] VITALS: BP 135/85
[2019-09-19] MEDS: MEROPENEM 1 GM/50 ML 1 GM in Premix Bag 1 BAG IVPB SCH (08:29)
[2019-09-19] MEDS: Aspirin 81 mg Enteric Coated Tablet PO SCH (08:30)
[2019-09-19] MEDS: cycloSPORINE, Modified 25 MG CAP PO SCH (08:30)
[2019-09-19] MEDS: Famotidine/PF 20 mg/2ml Vial SLOW IVP SCH (08:32)
[2019-09-19] MEDS: Multivit, Therapeutic 1 TAB PO SCH (08:33)
[2019-09-19] MEDS: Magnesium Oxide 250 MG TAB PO SCH (08:33)
[2019-09-19] MEDS: PHOS-NAK 1 PKT PACK PO SCH ×2 (08:34→14:31)
[2019-09-19] MEDS: traMADol HCl 50 MG TAB PO PRN (08:35)
[2019-09-19] MEDS: Polyethylene Glycol 3350 17 GM Packet PO SCH (08:41)
[2019-09-19] MEDS: Nystatin 500,000 UNITS/5 ML UDCUP SSW SCH ×2 (08:41→14:31)
--- NOTE | 2019-09-19 09:59 | PRG ---
DATE OF SERVICE: 09/19/2019 OBJECTIVE: GENERAL: This is a well-built female, in no apparent distress. VITAL SIGNS: Temperature 98.1, pulse 87, respiratory rate 18, and blood pressure 128/72. LABORATORY DATA: Potassium 3.0, BUN is 5, and creatinine is 1.13. ASSESSMENT AND PLAN: 1. Acute kidney injury, stable. 2. Chronic kidney disease, stage 3, stable. 3. Acidosis, questionable renal tubular acidosis with hypokalemia. Renin aldosterone level is pending. We will check urine studies. We will continue on sodium bicarb. Increase the sodium bicarb dose and also continue on potassium phosphate. She could be having proximal or type 2 renal tubular acidosis. 4. Hypophosphatemia. Continue supplements. We will continue to follow. Job ID: [id number]
[2019-09-19] MEDS: Mycophenolate 250 MG CAP PO SCH (11:29)
[2019-09-19] MEDS: Sodium Bicarbonate Tab 325 MG TAB PO SCH ×2 (11:30→14:31)
[2019-09-19 12:49] LABS: Bacteria/HPF None Seen HPF (None Seen); Bilirubin Negative (Negative); Blood, Urine 1+ (Negative); Clarity Clear (Clear); Glucose, Urine (Dipstick) Greater than 1000 mg/dL (Negative); Leukocyte Negative Leu/uL (Negative); Nitrite Negative (Negative); Protein, Urine (Dipstick) 200 mg/dL (Neg-Trace); RBC/HPF 0-3 HPF (0-3); Squamous Epithelial 0-3 HPF (0-3); Urobilinogen Normal mg/dL (Less than 2)
[2019-09-19 13:02] LABS: Creatinine, Urine 35.55 mg/dL (47-110); Potassium, Urine 74.8 mmol/L
--- NOTE | 2019-09-19 14:45 | PDOC.HOSPP ---
- Subjective Encounter Date: 09/19/19 Encounter Time: 14:00 Subjective: f/u for acute diverticulitis/colitis on current Meropenem. Feeling much better overall. Taking regular diet today. No fever or chills. - Objective Vital Signs & Weight: Vital Signs (12 hours) Temp Pulse Resp BP Pulse Ox 09/19/19 07:50 97.9 F 72 18 135/85 99 Weight Admit Weight 85 lb 7 oz Weight 85 lb 7 oz I&O: 09/18/19 09/19/19 09/20/19 06:59 06:59 06:59 Intake Total 1309 Balance 1309 Result Diagrams: 09/17/19 05:57 09/19/19 06:51 Additional Labs: Microbiology 09/12/19 18:13 Venous blood - Left Hand Blood Culture - Preliminary Specimen has been received and culture in progress. No Growth to date. 09/12/19 18:13 Venous blood - Left Hand Blood Culture - Preliminary Specimen has been received and culture in progress. No Growth to date. 09/12/19 18:13 Venous blood - Left Hand Blood Culture - Preliminary Gram Positive Cocci 09/12/19 18:13 Venous blood - Left Hand Blood Culture - Preliminary Gram Positive Cocci 09/05/19 00:45 Venous blood - Left Hand Blood Culture - Preliminary Specimen has been received and culture in progress. No Growth to date. 09/05/19 00:40 Venous blood - Right Hand Blood Culture - Preliminary Specimen has been received and culture in progress. No Growth to date. Laboratory Tests 09/04/19 09/04/19 09/04/19 22:43 22:43 22:43 WBC 12.9 H Hgb 11.1 L Plt Count Neutrophils % (Manual) Band Neuts % (Manual) Sodium Potassium 2.4 L* Carbon Dioxide Creatinine 2.34 H Phosphorus 1.9 L Alkaline Phosphatase Prealbumin 09/05/19 09/05/19 09/06/19 16:08 16:08 04:24 WBC 12.7 H Hgb 10.4 L Plt Count Neutrophils % (Manual) Band Neuts % (Manual) Sodium Potassium 3.0 L 2.4 L* Carbon Dioxide Creatinine 2.09 H 1.84 H Phosphorus Alkaline Phosphatase Prealbumin 09/06/19 09/12/19 09/12/19 16:06 18:16 18:16 WBC 20.0 H Hgb 13.5 Plt Count 465 H Neutrophils % (Manual) 85 H Band Neuts % (Manual) 10 Sodium 135 L Potassium 3.4 L Carbon Dioxide Less than 8 L* Creatinine 1.86 H 2.04 H Phosphorus Alkaline Phosphatase 303 H Prealbumin 09/13/19 09/13/19 09/14/19 05:00 05:00 04:55 WBC 21.2 H Hgb 11.4 L Plt Count 487 H Neutrophils % (Manual) 91 H 84 H Band Neuts % (Manual) 5 Sodium Potassium 4.1 Carbon Dioxide Less than 8 L* Creatinine 1.71 H Phosphorus Alkaline Phosphatase 234 H Prealbumin 09/16/19 09/17/19 09/17/19 05:26 01:14 05:57 WBC Hgb Plt Count Neutrophils % (Manual) Band Neuts % (Manual) Sodium Potassium 4.6 3.4 L Carbon Dioxide 9 L* Less than 8 L* 12 L Creatinine 1.32 H 1.28 H 1.20 H Phosphorus Alkaline Phosphatase Prealbumin 09/17/19 09/17/19 07:56 09:30 WBC Hgb Plt Count Neutrophils % (Manual) Band Neuts % (Manual) Sodium Potassium 3.1 L Carbon Dioxide 10 L Creatinine Phosphorus Alkaline Phosphatase Prealbumin 13.0 L Hospitalist ROS - Medication Medications: Active Medications Generic Name Dose Route Start Last Admin Trade Name Freq PRN Reason Stop Dose Admin Acetaminophen 1,000 mg 09/12/19 23:26 09/19/19 08:35 Tylenol PO 1,000 mg Q6H PRN Administration Mild Pain (1-3) Aspirin 81 mg 09/13/19 09:00 09/19/19 08:30 Ecotrin PO 81 mg DAILY HENRY Administration Cyclosporine 50 mg 09/13/19 09:00 09/19/19 08:30 Neoral PO 50 mg BID HENRY Administration Famotidine 20 mg 09/13/19 09:00 09/19/19 08:32 Pepcid SLOW IVP 20 mg DAILY HENRY Administration Meropenem 1 gm/ Device 50 mls @ 100 mls/hr 09/12/19 23:59 09/19/19 08:29 IVPB 50 mls 0800,1600,2359 HENRY Administration Ondansetron HCl 8 mg/ Sodium 54 mls @ 216 mls/hr 09/13/19 22:00 09/19/19 14: 35 Chloride IVPB Not Given Q8HR [facility] Sodium Bicarbonate 150 meq/ 1,150 mls @ 75 mls/hr 09/17/19 02:00 09/18/19 20: 31 Dextrose/Water IV 1,150 mls .[id number] HENRY Administration Lactulose 30 gm 09/18/19 09:00 09/19/19 11:29 Lactulose PO Not Given DAILY HENRY Magnesium Oxide 500 mg 09/13/19 09:00 09/19/19 08:33 Magnesium Oxide PO 500 mg DAILY HENRY Administration Miscellaneous Medication 2 pkt 09/18/19 21:00 09/19/19 14:31 Phos-Nak PO 2 pkt TID [facility] Administration Morphine Sulfate 2 mg 09/13/19 18:00 09/16/19 08:32 Morphine SLOW IVP 2 mg Q4H PRN Administration Moderate to Severe Pain (6-10) Multivitamins 1 tab 09/13/19 09:00 09/19/19 08:33 Theragran PO 1 tab DAILY [facility] Administration Mycophenolate Mofetil 500 mg 09/13/19 09:00 09/19/19 11:29 Cellcept PO Not Given BID [facility] Nystatin 500,000 units 09/17/19 09:00 09/19/19 14:31 Mycostatin SSW 500,000 units QID [facility] Administration Ondansetron HCl 4 mg 09/12/19 23:26 09/13/19 03:31 Zofran Odt PO 4 mg Q6H PRN Administration Nausea/Vomiting Polyethylene Glycol 17 gm 09/17/19 21:00 09/19/19 08:41 Miralax PO Not Given BID [facility] Potassium Chloride 40 meq 09/17/19 15:00 09/19/19 14:31 Klor-Con PO 40 meq TID [facility] Administration Sodium Bicarbonate 1,300 mg 09/19/19 09:00 09/19/19 14:31 Bicarbonate, Sodium PO 1,300 mg TID [facility] Administration Tenofovir Disoproxil Fumarate 300 mg 09/13/19 09:00 09/19/19 08:33 Viread PO 300 mg DAILY HENRY Administration Tramadol HCl 50 mg 09/16/19 11:54 09/19/19 08:35 Ultram PO 50 mg TIDPRN PRN Administration Pain - Exam General Appearance: NAD, awake alert Eye: PERRL, anicteric sclera ENT: normocephalic atraumatic, no oropharyngeal lesions Neck: supple, symmetric, no JVD, no thyromegaly Heart: RRR, no gallops, no rubs, normal peripheral pulses Respiratory: CTAB, no wheezes, no rales, no ronchi, normal chest expansion Gastrointestinal: soft, non-tender, non-distended, normal bowel sounds, no palpable masses Extremities: no cyanosis, no clubbing, no edema Skin: normal turgor, no lesions Neurological: cranial nerve grossly intact, no new deficit Musculoskeletal: normal tone, generalized weakness Psychiatric: normal affect, A&O x 3 Hosp A/P (1) Acute diverticulitis Code(s): K57.92 - DVTRCLI OF INTEST, PART UNSP, W/O PERF OR ABSCESS W/O BLEED Status: Acute Plan: Improved, resolving, continue Meropenem IV while hospitalized, plan to transition to Invanz IV daily to complete 10-day course of tx (2) EDGAR (acute kidney injury) Code(s): N17.9 - ACUTE KIDNEY FAILURE, UNSPECIFIED Status: Acute Plan: Resolving, continue supportive mgmt (3) Hypokalemia Code(s): E87.6 - HYPOKALEMIA Status: Acute Plan: Slow improvement, continue KCL supplementation (4) Nausea & vomiting Code(s): R11.2 - NAUSEA WITH VOMITING, UNSPECIFIED Status: Acute Plan: Resolved (5) CKD (chronic kidney disease), stage IV Code(s): N18.4 - CHRONIC KIDNEY DISEASE, STAGE 4 (SEVERE) Status: Chronic (6) Protein-calorie malnutrition, moderate Code(s): E44.0 - MODERATE PROTEIN-CALORIE MALNUTRITION Status: Chronic Plan: Continue Ensure/Mighty Shakes - Plan plan discussed w/ family, continue antibiotics, PT/OT, social director, out of bed/ambulate, DVT proph w/SCDs Stable currently Continue Meropenem 1gm IV q8h with plan to transition to Invanz for home infusion Sodium bicarbonate po Trial Reg Diet, continue Ensure Enlive/Mighty Shakes Appreciate GI consultation Lab: CRP, Procalcitonin today Likely home in 24H
--- NOTE | 2019-09-19 16:23 | PRG ---
DATE OF SERVICE: 09/19/2019 SUBJECTIVE: Ms. Diamond is eating. Her bowels are moving. She is actually having some diarrhea. She feels better. Her renal function has improved. Nephrology is working her up for renal tubular acidosis. She is going to go home on IV antibiotics. She notes that she is to have a colonoscopy with Dr. Beltre on October 03. OBJECTIVE: VITAL SIGNS: Temperature is 97.9, pulse 72, blood pressure 135/85. GENERAL: She is frail and thin. LUNGS: Clear. HEART: Regular rhythm. ABDOMEN: Soft and nontender. LABORATORY DATA: White count is down to 7 from 20,000 on admission, hemoglobin 9.1, platelet count 296. Sodium 141, potassium 3, chloride 116, bicarb 20, anion gap is 8, creatinine 1.13, BUN is 5. Blood culture on admission, positive for Micrococcus. ASSESSMENT: 1. Severe diverticulitis. No signs of perforation with readmission and positive blood cultures, now on IV antibiotics with plan to discharge home on these. 2. Status post liver transplant, on immunosuppression. Liver functions remained stable. 3. Severe non-anion gap acidosis with hypokalemia. She is being evaluated for metabolic acidosis such as RTA by Nephrology. 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 4. JANAE prep on the was positive for yeast in the mouth. She is on Mycostatin for that. 5. She had a component probably of stercoral ulceration in the colon based on the appearance of her CT. RECOMMENDATIONS: 1. Agree with antibiotics IV on discharge. 2. Continue Neoral and CellCept at present doses. 3. I would hold off on lactulose for constipation. She can use MiraLAX p.r.n. 4. Continue Mycostatin for the thrush. 5. We will have her colonoscopy canceled, this is not a good time to do that and she would consider a colonoscopy in a few months. 6. Follow up with Dr. Beltre in 2 weeks. 7. Continue Viread for hepatitis B suppression. Job ID: [id number]
[2019-09-19 16:43] VITALS: TEMP 97.6
--- NOTE | 2019-09-19 19:13 | DIS ---
DATE OF ADMISSION: 09/12/2019 DATE OF DISCHARGE: 09/19/2019 DISCHARGE DIAGNOSES: 1. Acute diverticulitis/colitis, improved. 2. Acute kidney injury on chronic kidney disease stage 4, improved. 3. Hypokalemia, persistent. 4. Nausea and vomiting secondary to #1, resolved. 5. Moderate protein-calorie malnutrition. 6. End-stage liver disease, status post liver transplantation with chronic immunosuppressive therapy. 7. Hypophosphatemia. CONSULTATIONS: 1. Dr. Ellis with Nephrology Service. 2. Dr. Mckeon with General Surgery Service. 3. Dr. Ken with GI Service. 4. Dr. Ángel Ibrahim with Infectious Disease Service. PERTINENT LABORATORY AND X-RAY FINDINGS: Potassium ranged between 2.6 to 4.3, carbon dioxide level ranged between less than 8 to 20, creatinine ranged between 1.13 to 2.04. Estimated GFR ranged between 24 to 47. Lactic acid level 0.6, magnesium level ranged between 1.6 to 2.1. CRP 1.17 on 09/18/2019. Procalcitonin level 0.09 on 09/18/2019. CBC showed a white blood cell count ranged between 7.0 to 21.2, hemoglobin ranged between 8.9 to 13.5. Beta-hydroxybutyrate level 0.23 on 09/16/2019. Blood cultures x2 dated on 09/12/2019, positive for presumptive micrococcus species, most consistent with skin contamination. CT of the abdomen and pelvis dated on 09/12/2019, showed colitis with mural thickening and dense stool in the upper left colon at the splenic flexure. Inflammatory changes along with sigmoid colon with diffuse diverticulosis suggesting diverticulitis. Repeat CT of the abdomen and pelvis dated 09/16/2019, showed focal featureless and hypoenhancing sigmoid colon without significant fat stranding, questionable ischemic colitis with partial obstruction. Esophageal varices. Compression fracture deformity of T11 and T12, unknown timeframe. HOSPITAL COURSE: The patient was initially admitted after presenting with severe abdominal pain with associated nausea, vomiting, and dehydration. The patient's history significant for recent acute diverticulitis with admission and IV antibiotic therapy with readmission for the same condition. CT imaging of the abdomen and pelvis showed inflammatory changes and mural thickening in the left colon as stated previously. The patient's history complicated by chronic immunosuppressive therapy with CellCept and cyclosporine due to liver transplantation. Treatment included IV meropenem in addition to pain control with morphine sulfate intravenously. The patient was evaluated by the GI Service with recommendations for ongoing supportive care and IV antibiotic therapy. The patient was slow to clinically improve and required adjustment to her antiemetic regimen. Due to the patient's chronic immunosuppressive therapy and recent admission for same condition partially treated, but not clearing, our recommendations per Infectious Disease were to initiate Invanz for a protracted IV antibiotic therapy after discharge. A PICC line was placed in the left upper extremity on 09/18/2019, with plans for outpatient infusion of Invanz. The patient did receive IV fluids throughout the hospital course in addition to sodium bicarbonate therapy due to persistent metabolic acidosis. The patient's overall electrolyte status had improved by the time of discharge as well as resolution of acute kidney injury. Overall, the patient remained clinically stable during the hospital course, tolerating regular oral intake by the time of discharge. I have examined the patient at the time of discharge and discussed followup instructions. The patient verbalized understanding and agreement. Ready for discharge on 09/19/2019. DISCHARGE MEDICATIONS: 1. Albuterol sulfate HFA one puff inhaled q.4 hours p.r.n. 2. Enteric-coated aspirin 81 mg p.o. daily. 3. Biotin 5 mg p.o. daily. 4. Calcium carbonate one tablet p.o. daily. 5. Cyclosporine 50 mg p.o. b.i.d. 6. Magnesium 500 mg p.o. daily. 7. Multivitamin with folic acid one tablet p.o. daily. 8. CellCept 500 mg p.o. b.i.d. 9. Ondansetron oral dissolving tablet 8 mg p.o. q.8 hours p.r.n. 10. Tenofovir 300 mg p.o. daily. 11. Tramadol/acetaminophen 37.5 mg/325 mg one tablet p.o. t.i.d. p.r.n. 12. Invanz 1 g IV q.24 hours x10 days. 13. PHOS-Nak two packets p.o. t.i.d. 14. Sodium bicarbonate 1300 mg p.o. t.i.d. x7 days. 15. Potassium chloride 40 mEq p.o. b.i.d. FOLLOWUP: The patient will follow up with her primary care provider, Dr. Shai Odonnell within 7 days of discharge. The patient will follow up with Dr. Ángel Ibrahim with Infectious Disease Service. CONDITION ON DISCHARGE: Fair. ACTIVITY: Ad regine. Rolling walker for ambulation. DIET: Regular. SPECIAL INSTRUCTIONS: Follow up with Outpatient Infusion Services at [facility] on 09/20/2019. CODE STATUS: Full. DISPOSITION: Home on 09/19/2019. TIME SPENT: Total time preparing and coordinating discharge, 35 minutes. Job ID: [id number]
--- NOTE | 2019-09-20 06:22 | PQF ---
DARRIN OBLAÑOS CHARLES DO [id number] CLINICAL DOCUMENTATION CLARIFICATION FORM: POST DISCHARGE Addendum to original discharge summary date: ____ Late entry note date: __ DATE: 09/20/2019 ATTN:FIDEL GUZMAN DO Please exercise your independent, professional judgment in responding to the clarification form. Clinical indicators are provided on the bottom of this form for your review Please check appropriate box(s) to clarify if the following diagnosis has been ruled in or ruled out: ATN [ x ] Ruled in diagnosis [ ] Continue to treat [ x ] Resolved [ ] Ruled out diagnosis [ ] Cannot rule out diagnosis [ ] Other diagnosis [ ] Unable to determine For continuity of documentation, please document condition throughout progress notes and discharge summary. Thank You. CLINICAL INDICATORS - SIGNS / SYMPTOMS / LABS - Acute kidney injury, stable due to ATN- Consultation, 09/17, Javi Workman MD - Acute kidney injury on chronic kidney disease stage 4, improved- DS, 09/19, FIDEL GUZMAN DO - Nausea and vomiting and dehydration- DS, 09/19, FIDEL GUZMAN DO - Creatinine: 2.04H on 09/12, 1.71H on 09/13-Laboratory record RISK FACTORS - Hypokalemia- DS, 09/19, FIDEL GUZMAN DO - Metabolic acidosis- DS, 09/19, FIDEL GUZMAN DO TREATMENTS - Sodium chloride.IV- MAR, 09/12 to 09/19 (This form is maintained as a part of the permanent medical record) 2014 [id number]. All Rights Reserved Leticia Hare [not provided] [not provided] JOSED
[2019-09-22 14:09] LABS: Renin Activity 0.383 ng/mL/hr (0.167-5.380)
== END 2019-09-19 17:02 | disposition home or self-care (01) | DRG 391 ==
LOC: ERS 17:03 → T4-A 22:48
PROVIDERS: ADMIT Family Medicine; ATTEND Family Medicine
PROC: 02HV33Z Insertion of Infusion Device into Superior Vena Cava, Percutaneous Approach (ICD-10-PCS; principal; 2019-09-18)
PROC: B5181ZA Fluoroscopy of Superior Vena Cava using Low Osmolar Contrast, Guidance (ICD-10-PCS; 2019-09-18)
PROC: B548ZZA Ultrasonography of Superior Vena Cava, Guidance (ICD-10-PCS; 2019-09-18)
DX: K57.92 Diverticulitis of intestine, part unspecified, without perforation or abscess without bleeding (principal); N17.0 Acute kidney failure with tubular necrosis; N18.4 Chronic kidney disease, stage 4 (severe); E44.0 Moderate protein-calorie malnutrition; M48.54XA Collapsed vertebra, not elsewhere classified, thoracic region, initial encounter for fracture; Z94.4 Liver transplant status; E87.2 Acidosis; Z68.1 Body mass index [BMI] 19.9 or less, adult; K72.90 Hepatic failure, unspecified without coma; K74.60 Unspecified cirrhosis of liver; E83.39 Other disorders of phosphorus metabolism; K21.9 Gastro-esophageal reflux disease without esophagitis; E83.42 Hypomagnesemia; D63.1 Anemia in chronic kidney disease; E87.5 Hyperkalemia; B18.2 Chronic viral hepatitis C; E86.0 Dehydration; E87.6 Hypokalemia; Z85.038 Personal history of other malignant neoplasm of large intestine; Z90.49 Acquired absence of other specified parts of digestive tract; Z86.010 Personal history of colon polyps
CPT/HCPCS: 36415; 36416; 36569; 74176; 74177; 80048; 80053; 81015; 82010; 82088; 82374; 82435; 82565; 82570; 82805; 83605; 83735; 83935; 84100; 84105; 84132; 84133; 84134; 84145; 84244; 84300; 84484; 85007; 85025; 85027; 86140; 87040; 87149; 87220; 96361; 96365; 96375; 96376; C1751; J0696; J2185; J2270; J2405; J2550; J3475; J3480; J3490; J7050; J7070; J7515; J7517; Q0162; Q9967; S0028

== ENCOUNTER 2019-10-09 14:58 | Observation (INO) | payer MEDICARE ==
[2019-10-09 15:40] LABS: #Basophils 0.1 thou/uL (0.0-0.2); #Eosinphils 0.4 thou/uL (0.0-0.7); #Lymphocytes 1.8 thou/uL (1.20-3.40); #Monocytes 0.6 thou/uL (0.11-0.59); #Neutrophils 3.3 thou/uL (1.40-6.50); %Basophils 1.2 % (0.0-1.0); %Eosinophils 7.2 % (0.0-10.0); %Lymphocytes 28.7 % (21.0-51.0); %Monocytes 9.2 % (0.0-10.0); %Neutrophils 53.8 % (42.0-75.0); Hemoglobin 12.1 g/dL (12.0-16.0); Mean Corpuscular HGB CONC 31.6 g/dL (32.0-36.0); Mean Corpuscular Hemoglobin 30.6 pg (27.0-31.0); Mean Corpuscular Volume 96.9 fL (78.0-98.0); Mean Platelet Volume 9.8 fL (7.4-10.4); Platelet Count 268 thou/uL (130-400); RBC Distribution Width 14.9 % (11.5-14.5); Red Blood Cell (RBC) Count 3.97 mill/uL (4.20-5.40); White Blood Cell (WBC) Count 6.2 thou/uL (4.8-10.8)
--- NOTE | 2019-10-09 15:41 | RAD ---
PORTABLE CHEST 1 VIEW: Date: 10/09/2019 Time: 1536 hours HISTORY: Chest pain, right upper quadrant pain, vomiting. FINDINGS: Comparison made with exam of 09/04/2019. The heart size is normal. The aorta is tortuous. The lungs are well expanded without lobar consolidat ion, pneumothoraces, or pleural effusions. Mild chronic changes are again seen. IMPRESSION: No radiographic evidence of acute cardiopulmonary process. POS: TPC
[2019-10-09 16:00] LABS: CRP (Inflammatory) Less than 0.50 mg/dL (= or < 0.5); Magnesium 1.9 mg/dL (1.6-2.6)
[2019-10-09 16:02] LABS: ALT (SGPT) 7 U/L (8-55); AST (SGOT) 14 U/L (5-34); Albumin 4.2 g/dL (3.4-4.8); Alkaline Phosphatase 526 U/L (40-110); Anion Gap 11 mmol/L (10-20); BUN (Urea Nitrogen) 19 mg/dL (9.8-20.1); Bilirubin, Total 0.6 mg/dL (0.2-1.2); Calc. Creatinine Clearance 0 mL/min (70-130); Calcium 9.7 mg/dL (7.8-10.44); Carbon Dioxide 14 mmol/L (23-31); Chloride 115 mmol/L (98-107); Estimated GFR-MDRD 23; Globulin 3.1 g/dL (2.4-3.5); Glucose 104 mg/dL (83-110); Lipase 22 U/L (8-78); Potassium 3.2 mmol/L (3.5-5.1); Protein, Total 7.3 g/dL (6.0-8.3); Sodium 137 mmol/L (136-145)
[2019-10-09 16:27] LABS: CKMB 1.7 ng/mL (0-6.6)
[2019-10-09 16:42] LABS: Bilirubin Negative (Negative); Blood, Urine 1+ (Negative); Clarity Turbid (Clear); Glucose, Urine (Dipstick) Greater than 1000 mg/dL (Negative); Leukocyte Negative Leu/uL (Negative); Nitrite Negative (Negative); Protein, Urine (Dipstick) 300 mg/dL (Neg-Trace); RBC/HPF 0-3 HPF (0-3); Urobilinogen Normal mg/dL (Less than 2)
[2019-10-09 16:54] LABS: Bacteria/HPF None Seen HPF (None Seen); Renal Epithelial 0-3 HPF (None Seen); WBC/HPF 0-3 HPF (0-3)
[2019-10-09 19:13] LABS: Troponin I Less than 0.010 ng/mL (< 0.028)
[2019-10-09] MEDS ORDERED: Ondansetron ODT 4 MG TAB PO PRN (20:05)
[2019-10-09] MEDS ORDERED: Calcium Carbonate 500 MG ChewTAB PO PRN (20:05)
[2019-10-09] MEDS ORDERED: Ondansetron PF 4 MG/2 ML Vial IVP PRN (20:05)
[2019-10-09] MEDS ORDERED: Acetaminophen 500 MG TAB PO PRN (20:05)
[2019-10-09] MEDS ORDERED: Promethazine 25 MG TAB PO PRN (20:05)
[2019-10-09 20:10] VITALS: BMI 14.3
[2019-10-09] MEDS ORDERED: Famotidine/PF 20 mg/2ml Vial SLOW IVP SCH (21:00)
[2019-10-09] MEDS: D5 NS w/ 40 mEq KCl 1,000 ML IV SCH (21:32)
[2019-10-09] MEDS: Megestrol Acetate 40 MG TAB PO SCH (21:32)
[2019-10-09 22:05] LABS: Troponin I 0.041 ng/mL (< 0.028)
[2019-10-09] MEDS: Acetaminophen/Codeine Oral Solution PO PRN (23:40)
--- NOTE | 2019-10-10 00:58 | HP ---
PRIMARY CARE PROVIDER: Shai Odonnell MD CHIEF COMPLAINT: Nausea, vomiting, and poor oral intake. HISTORY OF PRESENT ILLNESS: This is a 74-year-old female with significant history of recent acute diverticulitis/colitis, previously admitted to [facility] between 09/12/2019 to 09/19/2019. The patient was treated for acute kidney injury in addition to the diverticulitis/colitis, eventually discharging on IV Invanz for a 10-day course of antibiotic therapy, which the patient completed prior to this evaluation. The patient states her appetite has continually decreased with poor oral intake and some nausea and emesis. The patient states she has been taking her chronic medication regimens including immunosuppressive therapy, status post liver transplant on an inconsistent basis. The patient denied any hematemesis, melena, or dysuria. The patient does state she feels dehydrated and has some difficulty holding a regular diet down. 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 The patient denied any prominent abdominal pain, documented fever, chills, travel history, or family members with similar symptoms. In the emergency room, the patient underwent general evaluation with metabolic screening showing evidence of acute kidney injury and confirming dehydration. The patient was also noted with mild hypokalemia. The patient was placed on intravenous normal saline and referred to the Hospitalist Service for evaluation. PAST MEDICAL HISTORY: 1. Status post acute diverticulitis/colitis with a 10-day course of IV Invanz. 2. Chronic kidney disease, stage 4. 3. Moderate protein calorie malnutrition. 4. End-stage liver disease, status post liver transplantation, on chronic immunosuppressive therapy. 5. Hepatitis C. 6. History of colon cancer, status post resection. 7. Gastroesophageal reflux disease. 8. Osteoporosis, on current Forteo. PAST SURGICAL HISTORY: 1. Status post colectomy secondary to colon cancer. 2. Status post colonoscopy with polypectomy. CURRENT MEDICATIONS: 1. ProAir HFA one puff inhaled q.4 hours p.r.n. 2. Enteric-coated aspirin 81 mg p.o. daily. 3. Biotin 5 mg p.o. daily. 4. Multivitamin with calcium 1 tablet p.o. daily. 5. Cyclosporine 50 mg p.o. b.i.d. 6. Magnesium 500 mg p.o. daily. 7. Multivitamin 1 tablet p.o. daily. 8. CellCept 500 mg p.o. b.i.d. 9. Ondansetron ODT 8 mg p.o. q.8 hours p.r.n. 10. Tenofovir 300 mg p.o. daily. 11. Tramadol/acetaminophen 37.5 mg/325 mg 1 tablet p.o. t.i.d. p.r.n. pain. 12. Potassium chloride 40 mEq p.o. b.i.d. ALLERGIES: NO KNOWN DRUG ALLERGIES. FAMILY HISTORY: Father with diabetes mellitus. SOCIAL HISTORY: , accompanied by her in the emergency room. Former tobacco use, quitting in 2003. No alcohol or illicit drug use. Ambulates with a rolling walker and standby assistance. REVIEW OF SYSTEMS: CONSTITUTIONAL: Negative for weight loss or gain, ability to conduct usual activities. SKIN: Negative for rash, itching. EYES: Negative for double vision, pain. ENT/MOUTH: Negative for nose bleeding, neck stiffness, pain, tenderness. CARDIOVASCULAR: Negative for palpitations, dyspnea on exertion, orthopnea. RESPIRATORY: Negative for shortness of breath, wheezing, cough, hemoptysis, fever or night sweats. GASTROINTESTINAL: Negative for poor appetite, abdominal pain, heartburn, nausea, vomiting, constipation, or diarrhea. GENITOURINARY: Negative for urgency, frequency, dysuria, nocturia. MUSCULOSKELETAL: Negative for pain, swelling. NEUROLOGIC/PSYCHIATRIC: Negative for anxiety, depression. ALLERGY/IMMUNOLOGIC: Negative for skin rash, bleeding tendency. Otherwise negative except as stated per HPI. PHYSICAL EXAMINATION: VITAL SIGNS: On admission, blood pressure 128/61, pulse 89, respiratory rate is 12, temperature 97.7 degrees Fahrenheit, O2 saturation 95% on room air. GENERAL APPEARANCE: This is a 74-year-old female, ill appearing, alert, responsive, in no acute distress. HEENT: Pupils are equal, round, reactive to light and accommodation. Extraocular muscles are intact. No scleral icterus. No conjunctival injection. Nares patent. OP is clear. Oral mucosa dry. NECK: Supple. No cervical adenopathy. No thyromegaly. No carotid bruits. No JVD appreciated. Cervical spine with full active and passive range of motion. No meningeal signs noted. CHEST: Lungs are clear to auscultation bilaterally. CARDIOVASCULAR: S1, S2 without noted murmur, rub, or gallop. ABDOMEN: Flat, soft, nontender, and nondistended. Bowel sounds are positive in all 4 quadrants. No palpable mass. No rebound or guarding appreciated. EXTREMITIES: Warm and dry with poor skin turgor. Pulses palpable distally at the dorsalis pedis, posterior tibial, and popliteal arteries bilaterally. Capillary refill less than 2 seconds. Generalized muscle atrophy noted. NEUROLOGIC: Cranial nerves 2 through 12 are grossly intact. No focal or lateralizing signs appreciated. Not observed ambulatory during this exam. PERTINENT LABORATORY AND X-RAY FINDINGS: Sodium 137, potassium 3.2, chloride 115, CO2 of 14, BUN 19, creatinine 2.14, estimated GFR of 23, glucose 104, lactic acid level 1.3, calcium 9.7, magnesium 1.9, AST 14, ALT of 7, alkaline phosphatase 526. Troponin I 0.038. CRP less than 0.50. Lipase 22. CBC showed a white blood cell count of 6.2, hemoglobin 12, hematocrit 38, platelet count 268 with 54% neutrophils. Portable chest x-ray dated 10/09/2019 showed no acute cardiopulmonary process. EKG dated 10/09/2019 by my interpretation shows sinus mechanism with heart rates in the 80s. Attenuated R-waves in the precordial leads. Left axis deviation noted. Right bundle branch block pattern noted. No acute ST-T wave changes appreciated. ASSESSMENT AND PLAN: 1. Nausea and vomiting. The patient will be observed on the telemetry unit. Suspect multifactorial process. We will continue IV fluid hydration in addition to antiemetics with Zofran 4 mg IV q.6 hours. Suspect component of recent Forteo with known side-effect profile of nausea and vomiting. We will discontinue Forteo and monitor clinical response. 2. Acute kidney injury on chronic kidney disease stage 4. Suspect multifactorial as stated previously. Continue IV fluid hydration and avoid nephrotoxic agents and limit contrast exposure. Repeat creatinine in the a.m. 3. Dehydration secondary to #1. See #1 and #2 above. Encourage increased free water intake orally when clinically indicated. 4. Hypokalemia, mild. We will continue potassium chloride supplementation and maintenance fluids. Serial potassium monitoring. 5. Chronic history of metabolic acidosis. We will initiate sodium bicarbonate when tolerating oral intake. 6. Liver transplantation, on chronic immunosuppressive therapy. Stable currently. We will resume home regimen of CellCept and cyclosporine. No evidence to suggest rejection syndrome. 7. Moderate protein calorie malnutrition. Initiate Megace 40 mg p.o. t.i.d. Encouraged regular dietary intake. 8. Prophylaxis. SCDs while in bed. Pepcid 20 mg IV q.12 hours. PT evaluation in the a.m. CODE STATUS: Full. Surrogate medical decision maker is the patient's spouse. Job ID: [id number]
[2019-10-10 05:15] LABS: Band 1 % (5-11); Eosinophils 8 % (0-10); Hemoglobin 10.5 g/dL (12.0-16.0); Lymphocytes 33 % (21-51); MDiff Complete? YES; Mean Corpuscular HGB CONC 32.6 g/dL (32.0-36.0); Mean Corpuscular Hemoglobin 31.2 pg (27.0-31.0); Mean Corpuscular Volume 95.7 fL (78.0-98.0); Mean Platelet Volume 9.9 fL (7.4-10.4); Monocytes 5 % (0-10); Neutrophil 51 % (42-75); Platelet Count 214 thou/uL (130-400); Platelet Morphology Comment Appears Adequate; RBC Distribution Width 14.9 % (11.5-14.5); Red Blood Cell (RBC) Count 3.36 mill/uL (4.20-5.40); White Blood Cell (WBC) Count 6.3 thou/uL (4.8-10.8)
[2019-10-10 05:20] LABS: ALT (SGPT) 7 U/L (8-55); AST (SGOT) 17 U/L (5-34); Albumin 3.3 g/dL (3.4-4.8); Alkaline Phosphatase 445 U/L (40-110); Anion Gap 8 mmol/L (10-20); BUN (Urea Nitrogen) 15 mg/dL (9.8-20.1); Bilirubin, Total 0.4 mg/dL (0.2-1.2); Calc. Creatinine Clearance 17 mL/min (70-130); Calcium 8.4 mg/dL (7.8-10.44); Carbon Dioxide 13 mmol/L (23-31); Chloride 122 mmol/L (98-107); Estimated GFR-MDRD 30; Globulin 2.3 g/dL (2.4-3.5); Glucose 84 mg/dL (83-110); Protein, Total 5.6 g/dL (6.0-8.3); Sodium 140 mmol/L (136-145); Uric Acid Less than 2.0 mg/dL (2.6-6.0)
[2019-10-10 05:23] LABS: Phosphorus 1.8 mg/dL (2.3-4.7); Potassium 2.9 mmol/L (3.5-5.1)
[2019-10-10] MEDS: D5 NS w/ 40 mEq KCl 1,000 ML IV SCH ×2 (05:53→16:27)
[2019-10-10] MEDS ORDERED: Potassium Phosphate 12 MMOL in Sodium Chloride 0.9% 100 ML IVPB SCH (06:00)
[2019-10-10] MEDS: Acetaminophen/Codeine Oral Solution PO PRN (06:44)
[2019-10-10] MEDS ORDERED: Potassium Chloride 20 MEQ TAB PO SCH (10:00)
[2019-10-10] MEDS: Megestrol Acetate 40 MG TAB PO SCH ×2 (12:19→16:25)
--- NOTE | 2019-10-10 12:55 | PDOC.HOSPP ---
- Subjective Encounter Date: 10/10/19 Encounter Time: 12:54 Subjective: Ms. Diamond was seen today in follow-up of nausea and unable to keep food down. She is feeling better today. She has not had anymore symptoms today. - Objective Vital Signs & Weight: Vital Signs (12 hours) Temp Pulse Pulse Pulse Resp BP BP 10/10/19 11:30 97.9 F 76 18 10/10/19 10:10 74 79 118/57 L 10/10/19 07:07 98.6 F 65 16 10/10/19 04:00 97.6 F 66 16 114/59 L BP BP Pulse Ox 10/10/19 11:30 116/58 L 97 10/10/19 10:10 132/63 10/10/19 07:07 113/55 L 94 L 10/10/19 04:00 96 Weight Admit Weight 78 lb 12.8 oz Weight 78 lb 12.8 oz I&O: 10/09/19 10/10/19 10/11/19 06:59 06:59 06:59 Intake Total 740 Output Total 700 Balance 40 Result Diagrams: 10/10/19 04:36 10/10/19 04:36 Hospitalist ROS - Medication Medications: Active Medications Generic Name Dose Route Start Last Admin Trade Name Freq PRN Reason Stop Dose Admin Acetaminophen/Codeine Phosphate 5 ml 10/09/19 22:51 10/10/19 06:44 Tylenol/Codeine Elixir PO 5 ml Q4H PRN Administration Cough Famotidine 20 mg 10/09/19 21:00 10/09/19 21:33 Pepcid SLOW IVP 20 mg QPM HENRY Administration Potassium Chloride/Dextrose/Sod Cl 1,000 mls @ 100 mls/hr 10/09/19 20:05 05:53 D5 Ns W/ 40 Meq Kcl IV 1,000 mls .Q10H HENRY Administration Megestrol Acetate 40 mg 10/09/19 21:00 10/10/19 12:19 Megace PO Not Given TID HENRY - Exam Eye: PERRL Heart: RRR, no murmur, no gallops, no rubs, normal peripheral pulses Respiratory: CTAB, no wheezes, no rales, no ronchi, normal chest expansion, no tachypnea, normal percussion Gastrointestinal: soft, non-tender, non-distended, normal bowel sounds, no palpable masses, no hepatomegaly Extremities: no cyanosis Hosp A/P (1) Nausea Code(s): R11.0 - NAUSEA Status: Acute (2) HTN (hypertension) Code(s): I10 - ESSENTIAL (PRIMARY) HYPERTENSION Status: Chronic (3) Hypokalemia Code(s): E87.6 - HYPOKALEMIA Status: Acute (4) H/O: CVA (cerebrovascular accident) Code(s): Z86.73 - PRSNL HX OF TIA (TIA), AND CEREB INFRC W/O RESID DEFICITS Status: Chronic (5) History of liver transplant Code(s): Z94.4 - LIVER TRANSPLANT STATUS Status: Chronic - Plan * Nausea- likely due to medication * Hypokalemia- this is chronic, but maade worse with vomiting, and GI losses- will continue to replace * re-check her level this afternoon * History of Liver transplant- stable * Possibly home this afternoon
[2019-10-10 13:59] LABS: Potassium 3.5 mmol/L (3.5-5.1)
[2019-10-10 16:05] VITALS: BP 121/59; TEMP 97.8
--- NOTE | 2019-10-11 08:44 | DIS ---
DATE OF ADMISSION: 10/09/2019 DATE OF DISCHARGE: 10/10/2019 DISCHARGE DISPOSITION: Home. DISCHARGE DIAGNOSES: 1. Nausea and vomiting, likely secondary to adverse medication effect. 2. History of recent diverticulitis. 3. Chronic kidney disease stage 4. 4. Moderate protein calorie malnutrition. 5. End-stage liver disease, status post liver transplant. 6. Chronic hepatitis C. 7. History of colon cancer status post resection. 8. Gastroesophageal reflux disease. 9. Osteoarthritis, on Forteo. DISCHARGE MEDICATIONS: 1. Potassium chloride 10 mEq daily. 2. PHOS-Nak two packets three times a day. 3. Ultracet one tablet t.i.d. as needed. 4. Tenofovir 300 mg daily. 5. CellCept 500 mg twice a day. 6. Multivitamin once daily. 7. Magnesium 500 mg daily. 8. Neoral (cyclosporine) 50 mg twice daily. 9. Biotin 5 mg daily. 10. Aspirin 81 mg daily. 11. Albuterol inhaler q.4 as needed. CODE STATUS: Full code. ALLERGIES: NO KNOWN DRUG ALLERGIES. HOSPITAL COURSE: Ms. Diamond is a pleasant 74-year-old female, who was admitted to the hospital after she was experiencing nausea and vomiting. She made the observation that happened typically after taking the Forteo. This is one of the side effects of the medications. When this was discontinued, her symptoms improved. She has been instructed to stay off the Forteo at this point, and talk with Dr. Krause who had prescribed the medication and see if there is an alternative as she was unable to eat and keep anything down on this medication. The patient is subsequently stable for discharge and is being discharged home. Job ID: [id number]
--- NOTE | 2019-10-14 15:44 | EKG ---
Test Reason : Blood Pressure : / mmHG Vent. Rate : 081 BPM Atrial Rate : 081 BPM P-R Int : 158 ms QRS Dur : 136 ms QT Int : 408 ms P-R-T Axes : 079 -41 066 degrees QTc Int : 473 ms Normal sinus rhythm Left axis deviation Right bundle branch block Abnormal ECG Confirmed by CHAVA DEGROOT ([id number]), editor [employer] journal LOBO MCCARTHY ([id number]) on 10/14/2019 3:44:06 PM Referred By: Confirmed By:CHAVA Chance
== END 2019-10-10 20:09 | disposition home or self-care (01) ==
LOC: ERS 14:58 → 2SW 19:48
PROVIDERS: ADMIT Family Medicine; ATTEND Family Medicine
DX: R11.2 Nausea with vomiting, unspecified (principal); N18.4 Chronic kidney disease, stage 4 (severe); N17.9 Acute kidney failure, unspecified; E86.0 Dehydration; K72.90 Hepatic failure, unspecified without coma; K21.9 Gastro-esophageal reflux disease without esophagitis; M81.0 Age-related osteoporosis without current pathological fracture; E87.2 Acidosis; J43.9 Emphysema, unspecified; E87.6 Hypokalemia; B18.2 Chronic viral hepatitis C; M19.90 Unspecified osteoarthritis, unspecified site; E44.0 Moderate protein-calorie malnutrition; Z68.1 Body mass index [BMI] 19.9 or less, adult; Z85.038 Personal history of other malignant neoplasm of large intestine; Z86.73 Personal history of transient ischemic attack (TIA), and cerebral infarction without residual deficits; Z87.891 Personal history of nicotine dependence; Z79.899 Other long term (current) drug therapy; Z90.49 Acquired absence of other specified parts of digestive tract; Z94.4 Liver transplant status
CPT/HCPCS: 71045; 80053 ×2; 82553; 83605; 83690; 83735; 84100; 84132; 84484 ×2; 84550; 85007; 85025; 85027; 86140; 93005; 96361; 96365; 96366 ×2; 96367; 96375; 99285; G0378 ×3; 36415; 36416; 81003; 81015; 96360; J3480; J3490; S0028; S0179

== ENCOUNTER 2019-12-01 13:12 | Outpatient (CLI) | payer MEDICARE ==
--- NOTE | 2019-12-01 14:30 | CT ---
CT chest noncontrast HISTORY: Liver transplant. Dyspnea. COMPARISON: 03/02/2016. FINDINGS: Lungs remain hyperinflated with scattered mild emphysematous bullae and moderate peripheral interstitial scarring. A focal area of more spiculated scarring at the lateral aspect of the right upper lobe is stable compared to the prior exam. Now centered within the left lung apex is a 0.5 cm nodular area adjacent to a 0.9 cm x 0.9 cm cystic component and immediately adjacent peripheral scarring/spiculation. No other new nodules are evident. No pleural fluid or pneumothorax. Lack of contrast limits evaluation of the soft tissues. No mediastinal adenopathy is apparent. There is calcification in the arterial structures. Postoperative changes of the upper abdomen are consistent with prior liver surgery. Partial compression deformities of the vertebral bodies of T5, T6, T12, and L1 are stable compared to thoracic spine radiograph from 08/02/2019. IMPRESSION: No evidence of acute interstitial lung disease. Overall, emphysematous disease and periph eral scarring are unchanged. A new nodule at the right apex contains a cystic/cavitary component and is 0.9 cm greatest overall di ameter. Please consider follow-up CT chest in 6 months to evaluate for stability. Atherosclerosis. Chronic-type findings are stable.
== END 2019-12-01 13:13 | disposition home or self-care (01) ==
LOC: BICCT 13:12
PROVIDERS: ATTEND Transplant Surgery
DX: Z48.23 Encounter for aftercare following liver transplant (principal); C22.0 Liver cell carcinoma; J43.9 Emphysema, unspecified; J98.4 Other disorders of lung; R91.1 Solitary pulmonary nodule; I70.0 Atherosclerosis of aorta; Z98.890 Other specified postprocedural states
CPT/HCPCS: 71250